=== PATIENT | male | born 1950 | race Caucasian/White ===

== ENCOUNTER 2022-12-12 16:57 | Inpatient (IN) | payer OTHER ==
[2022-12-12] MEDS ORDERED: CEFAZOLIN SODIUM 2 GM VIAL IVPB ONE (17:48)
[2022-12-12] MEDS ORDERED: CEFEPIME 2 GM/100 ML BAG IVPB ONE (18:24)
[2022-12-12 18:29] LABS: BASO % 1.2 % (0-2.0); EOS % 7.8 % (0-4.5); HEMATOCRIT 33.3 % (35.4-49); HEMOGLOBIN 11.1 GM/dL (11.7-16.9); LYMPH % 25.9 % (8-40); MCH 31.9 pg (25.7-33.7); MCHC 33.4 g/dl (32.0-35.9); MEAN CELL VOLUME 95.7 fl (80-96); MEAN PLT VOLUME 7.8 fl (7.5-11.1); NEUT % 54.1 % (42.8-82.8); PLATELET COUNT 292 10^3/uL (134-434); RBC 3.48 M/mm3 (4.00-5.60); RDW 18.5 % (11.9-15.9); WHITE BLOOD COUNT 7.7 K/mm3 (4.0-10.0)
[2022-12-12 18:36] LABS: INR 1.3 (0.83-1.09)
[2022-12-12 18:39] LABS: ACTIVATED PTT 37.6 SECONDS (25.2-36.5)
[2022-12-12 18:55] LABS: CHLORIDE 104 mmol/L (98-107); POTASSIUM 5.1 mmol/L (3.5-5.1); SODIUM 138 mmol/L (136-145)
[2022-12-12 18:57] LABS: CALCIUM 8.8 mg/dL (8.5-10.1)
[2022-12-12 18:58] LABS: ALBUMIN 3.4 g/dl (3.4-5.0); ANION GAP 5 mmol/L (4-13); BLOOD UREA NITROGEN 31.4 mg/dL (7-18); CO2 29 mmol/L (21-32); GLUCOSE,RANDOM 191 mg/dL (74-106)
[2022-12-12 19:01] LABS: CREATININE 1.1 mg/dL (0.55-1.3); SGOT/AST 37 U/L (15-37); SGPT/ALT 23 U/L (13-61)
[2022-12-12 19:02] LABS: BILIRUBIN,TOTAL 0.2 mg/dL (0.2-1)
[2022-12-12 19:03] LABS: TOT PROT 6.9 g/dl (6.4-8.2)
[2022-12-12 19:04] LABS: ALK PHOS 141 U/L (45-117)
[2022-12-12 22:31] LABS: ERYTHROCYTE SEDIMENTATION RATE 24 mm/hr (0-20)
[2022-12-13] MEDS ORDERED: PIPERACILLIN/TAZOB 3.375 GM 3.375 GM/50 ML BAG IVPB ONE ×4 (00:29→21:54)
[2022-12-13] MEDS: PIPERACILLIN/TAZOB 3.375 GM 3.375 GM in DEXTROSE 5%-WATER - 50 ML IVPB SCH ×5 (00:41→22:18)
[2022-12-13] MEDS: oxyCODONE HCL 5 MG TABLET PO PRN ×2 (00:41→22:18)
[2022-12-13] MEDS ORDERED: HALOPERIDOL LACTATE 5 MG/ML IM ONE (03:30)
[2022-12-13] MEDS: GABAPENTIN 300 MG CAPSULE PO SCH ×3 (06:16→22:18)
[2022-12-13] MEDS: LEVOTHYROXINE NA 50 MCG TABLET (FP) PO SCH (08:26)
[2022-12-13 08:57] LABS: BASO % 0.8 % (0-2.0); HEMATOCRIT 34.2 % (35.4-49); HEMOGLOBIN 11.1 GM/dL (11.7-16.9); LYMPH % 13.3 % (8-40); MCH 31.2 pg (25.7-33.7); MCHC 32.4 g/dl (32.0-35.9); MEAN CELL VOLUME 96.3 fl (80-96); MEAN PLT VOLUME 8.1 fl (7.5-11.1); MONO % 7.8 % (3.8-10.2); NEUT % 74.1 % (42.8-82.8); PLATELET COUNT 310 10^3/uL (134-434); RBC 3.55 M/mm3 (4.00-5.60); RDW 17.9 % (11.9-15.9); WHITE BLOOD COUNT 11.3 K/mm3 (4.0-10.0)
[2022-12-13 09:18] LABS: POTASSIUM 5.1 mmol/L (3.5-5.1)
[2022-12-13 09:27] LABS: ALBUMIN 3.6 g/dl (3.4-5.0); BLOOD UREA NITROGEN 22.1 mg/dL (7-18); PHOSPHOROUS 3.4 mg/dL (2.5-4.9)
[2022-12-13 09:29] LABS: BILIRUBIN,TOTAL 0.4 mg/dL (0.2-1); TOT PROT 7.4 g/dl (6.4-8.2)
[2022-12-13 09:30] LABS: CREATININE 0.9 mg/dL (0.55-1.3)
[2022-12-13] MEDS: SOTALOL HCL 80 MG TABLET (FP) PO SCH ×2 (09:37→22:27)
[2022-12-13] MEDS ORDERED: AMOXICILLIN 500 MG CAPSULE (FP) PO SCH (10:00)
[2022-12-13] MEDS: INSULIN SLIDING SCALE (NOVOLOG) 1 VIAL SQ SCH ×3 (11:22→22:18)
[2022-12-13] MEDS: INSULIN (LEVEMIR) 100 UNITS/ML UNITS SQ SCH ×2 (11:30→22:17)
[2022-12-13] MEDS ORDERED: ACETAMINOPHEN 325 MG TABLET (FP) ONE (15:57)
[2022-12-13] MEDS ORDERED: QUEtiapine FUMARATE 100 MG TABLET (FP) ONE (21:52)
[2022-12-13] MEDS ORDERED: MIRTAZAPINE 15 MG TABLET (FP) ONE (21:52)
[2022-12-13] MEDS ORDERED: QUEtiapine FUMARATE 25 MG TABLET ONE (21:52)
[2022-12-13] MEDS ORDERED: DONEPEZIL HCL 5 MG TABLET (FP) ONE (21:52)
[2022-12-13] MEDS ORDERED: ROSUVASTATIN CA 20 MG TABLET ONE (21:53)
[2022-12-13] MEDS ORDERED: traZODone HCL 50 MG TABLET (FP) ONE (21:53)
[2022-12-13] MEDS ORDERED: GABAPENTIN 300 MG CAPSULE ONE (21:53)
[2022-12-13] MEDS ORDERED: oxyCODONE HCL 5 MG TABLET ONE (21:54)
[2022-12-13] MEDS: DONEPEZIL HCL 10 MG TABLET (FP) PO SCH (22:17)
[2022-12-13] MEDS: traZODone HCL 50 MG TABLET (FP) PO SCH (22:17)
[2022-12-13] MEDS: ROSUVASTATIN CA 20 MG TABLET PO SCH (22:17)
[2022-12-13] MEDS: MIRTAZAPINE 15 MG TABLET (FP) PO SCH (22:18)
[2022-12-13] MEDS: QUEtiapine FUMARATE 50 MG TABLET PO SCH (22:18)
[2022-12-14] MEDS ORDERED: GABAPENTIN 300 MG CAPSULE ONE ×2 (06:07→13:42)
[2022-12-14] MEDS ORDERED: PIPERACILLIN/TAZOB 3.375 GM 3.375 GM/50 ML BAG IVPB ONE ×2 (06:08→13:43)
[2022-12-14] MEDS: GABAPENTIN 300 MG CAPSULE PO SCH ×3 (06:42→21:36)
[2022-12-14] MEDS: PIPERACILLIN/TAZOB 3.375 GM 3.375 GM in DEXTROSE 5%-WATER - 50 ML IVPB SCH ×3 (06:42→21:37)
[2022-12-14] MEDS: INSULIN SLIDING SCALE (NOVOLOG) 1 VIAL SQ SCH ×4 (08:29→21:40)
[2022-12-14] MEDS: INSULIN (LEVEMIR) 100 UNITS/ML UNITS SQ SCH ×2 (08:46→21:40)
[2022-12-14] MEDS ORDERED: LEVOTHYROXINE NA 50 MCG TABLET (FP) ONE (08:53)
[2022-12-14] MEDS: LEVOTHYROXINE NA 50 MCG TABLET (FP) PO SCH (09:15)
[2022-12-14] MEDS: SOTALOL HCL 80 MG TABLET (FP) PO SCH ×2 (09:15→21:35)
[2022-12-14 13:31] LABS: BASO % 0.8 % (0-2.0); EOS % 4.5 % (0-4.5); HEMATOCRIT 38.1 % (35.4-49); HEMOGLOBIN 12.6 GM/dL (11.7-16.9); LYMPH % 15.9 % (8-40); MEAN PLT VOLUME 7.9 fl (7.5-11.1); MONO % 10.3 % (3.8-10.2); NEUT % 68.5 % (42.8-82.8); PLATELET COUNT 347 10^3/uL (134-434); RBC 3.93 M/mm3 (4.00-5.60); RDW 18.1 % (11.9-15.9); WHITE BLOOD COUNT 7.7 K/mm3 (4.0-10.0)
[2022-12-14] MEDS ORDERED: oxyCODONE HCL 5 MG TABLET ONE (13:42)
[2022-12-14 13:44] LABS: POTASSIUM 4.8 mmol/L (3.5-5.1)
[2022-12-14 13:46] LABS: CALCIUM 9.5 mg/dL (8.5-10.1)
[2022-12-14 13:47] LABS: ALBUMIN 3.6 g/dl (3.4-5.0); BLOOD UREA NITROGEN 20.7 mg/dL (7-18)
[2022-12-14 13:51] LABS: TOT PROT 7.7 g/dl (6.4-8.2)
[2022-12-14 13:52] LABS: BILIRUBIN,TOTAL 0.4 mg/dL (0.2-1)
[2022-12-14] MEDS: oxyCODONE HCL 5 MG TABLET PO PRN (14:10)
[2022-12-14] MEDS ORDERED: FLU VACCINE (FLULAVAL) PF 60 MCG/0.5 ML SYRINGE 2023-2024 IM ONE (17:30)
[2022-12-14] MEDS: QUEtiapine FUMARATE 50 MG TABLET PO SCH (21:34)
[2022-12-14] MEDS: DONEPEZIL HCL 10 MG TABLET (FP) PO SCH (21:34)
[2022-12-14] MEDS: MIRTAZAPINE 15 MG TABLET (FP) PO SCH (21:34)
[2022-12-14] MEDS: traZODone HCL 50 MG TABLET (FP) PO SCH (21:35)
[2022-12-14] MEDS: ROSUVASTATIN CA 20 MG TABLET PO SCH (21:36)
[2022-12-14] MEDS: ACETAMINOPHEN 325 MG TABLET (FP) PO PRN (21:38)
[2022-12-15] MEDS: GABAPENTIN 300 MG CAPSULE PO SCH ×3 (05:43→21:52)
[2022-12-15] MEDS: PIPERACILLIN/TAZOB 3.375 GM 3.375 GM in DEXTROSE 5%-WATER - 50 ML IVPB SCH ×3 (05:43→21:56)
[2022-12-15] MEDS: oxyCODONE HCL 5 MG TABLET PO PRN ×3 (05:45→21:53)
[2022-12-15] MEDS: INSULIN (LEVEMIR) 100 UNITS/ML UNITS SQ SCH ×2 (06:07→21:51)
[2022-12-15] MEDS: LEVOTHYROXINE NA 50 MCG TABLET (FP) PO SCH (06:07)
[2022-12-15] MEDS: INSULIN SLIDING SCALE (NOVOLOG) 1 VIAL SQ SCH ×4 (06:07→21:51)
[2022-12-15 08:33] LABS: BASO % 0.8 % (0-2.0); HEMOGLOBIN 10.5 GM/dL (11.7-16.9); LYMPH % 13.8 % (8-40); MCH 31.6 pg (25.7-33.7); MCHC 32.8 g/dl (32.0-35.9); MEAN CELL VOLUME 96.5 fl (80-96); MONO % 9.1 % (3.8-10.2); NEUT % 70.3 % (42.8-82.8); PLATELET COUNT 279 10^3/uL (134-434); RBC 3.31 M/mm3 (4.00-5.60); RDW 18.4 % (11.9-15.9); WHITE BLOOD COUNT 7.4 K/mm3 (4.0-10.0)
[2022-12-15 08:45] LABS: POTASSIUM 4.1 mmol/L (3.5-5.1)
[2022-12-15 08:48] LABS: CALCIUM 8.5 mg/dL (8.5-10.1)
[2022-12-15 08:49] LABS: BLOOD UREA NITROGEN 37.6 mg/dL (7-18)
[2022-12-15 08:52] LABS: CREATININE 1.2 mg/dL (0.55-1.3)
[2022-12-15 08:53] LABS: BILIRUBIN,TOTAL 0.3 mg/dL (0.2-1); TOT PROT 6.3 g/dl (6.4-8.2)
[2022-12-15] MEDS: SOTALOL HCL 80 MG TABLET (FP) PO SCH ×2 (10:52→21:55)
[2022-12-15] MEDS: COLLAGENASE CLOSTRIDIUM HIST. 30 GRAMS TUBE TP SCH ×2 (10:52→19:34)
[2022-12-15] MEDS: traZODone HCL 50 MG TABLET (FP) PO SCH (21:51)
[2022-12-15] MEDS: DONEPEZIL HCL 10 MG TABLET (FP) PO SCH (21:52)
[2022-12-15] MEDS: MIRTAZAPINE 15 MG TABLET (FP) PO SCH (21:52)
[2022-12-15] MEDS: QUEtiapine FUMARATE 50 MG TABLET PO SCH (21:52)
[2022-12-15] MEDS: ROSUVASTATIN CA 20 MG TABLET PO SCH (21:52)
[2022-12-16] MEDS: PIPERACILLIN/TAZOB 3.375 GM 3.375 GM in DEXTROSE 5%-WATER - 50 ML IVPB SCH ×3 (06:48→22:32)
[2022-12-16] MEDS: INSULIN SLIDING SCALE (NOVOLOG) 1 VIAL SQ SCH ×4 (06:48→22:36)
[2022-12-16] MEDS: LEVOTHYROXINE NA 50 MCG TABLET (FP) PO SCH (06:48)
[2022-12-16] MEDS: GABAPENTIN 300 MG CAPSULE PO SCH ×3 (06:48→22:30)
[2022-12-16] MEDS: INSULIN (LEVEMIR) 100 UNITS/ML UNITS SQ SCH ×2 (06:49→22:37)
[2022-12-16] MEDS: COLLAGENASE CLOSTRIDIUM HIST. 30 GRAMS TUBE TP SCH (10:05)
[2022-12-16 11:14] LABS: INR 1.22 (0.83-1.09); PROTHROMBIN TIME (PATIENT) 14.1 SEC (9.7-13.0)
[2022-12-16] MEDS: oxyCODONE HCL 5 MG TABLET PO PRN (12:41)
[2022-12-16] MEDS: ACETAMINOPHEN 325 MG TABLET (FP) PO PRN (17:27)
[2022-12-16] MEDS: QUEtiapine FUMARATE 50 MG TABLET PO SCH (22:29)
[2022-12-16] MEDS: DONEPEZIL HCL 10 MG TABLET (FP) PO SCH (22:30)
[2022-12-16] MEDS: MIRTAZAPINE 15 MG TABLET (FP) PO SCH (22:30)
[2022-12-16] MEDS: ROSUVASTATIN CA 20 MG TABLET PO SCH (22:31)
[2022-12-16] MEDS: traZODone HCL 50 MG TABLET (FP) PO SCH (22:31)
[2022-12-17] MEDS ORDERED: LIDOCAINE HCL 1%, 10 MG/ML (20ML VIAL) INF ONE
[2022-12-17] MEDS: GABAPENTIN 300 MG CAPSULE PO SCH ×3 (06:49→21:01)
[2022-12-17] MEDS: PIPERACILLIN/TAZOB 3.375 GM 3.375 GM in DEXTROSE 5%-WATER - 50 ML IVPB SCH ×3 (06:49→21:01)
[2022-12-17] MEDS: LEVOTHYROXINE NA 50 MCG TABLET (FP) PO SCH (06:49)
[2022-12-17] MEDS: oxyCODONE HCL 5 MG TABLET PO PRN ×2 (06:56→23:53)
[2022-12-17] MEDS: INSULIN (LEVEMIR) 100 UNITS/ML UNITS SQ SCH ×2 (07:34→21:10)
[2022-12-17] MEDS: INSULIN SLIDING SCALE (NOVOLOG) 1 VIAL SQ SCH ×4 (07:34→21:11)
[2022-12-17 09:40] LABS: BASO % 0.8 % (0-2.0); EOS % 7.3 % (0-4.5); HEMATOCRIT 32.9 % (35.4-49); HEMOGLOBIN 11.1 GM/dL (11.7-16.9); LYMPH % 14.1 % (8-40); MCH 32.2 pg (25.7-33.7); MCHC 33.8 g/dl (32.0-35.9); MEAN CELL VOLUME 95.2 fl (80-96); MEAN PLT VOLUME 7.9 fl (7.5-11.1); MONO % 9.3 % (3.8-10.2); NEUT % 68.5 % (42.8-82.8); PLATELET COUNT 288 10^3/uL (134-434); RBC 3.45 M/mm3 (4.00-5.60); RDW 18.1 % (11.9-15.9); WHITE BLOOD COUNT 8.4 K/mm3 (4.0-10.0)
[2022-12-17 09:47] LABS: CHLORIDE 110 mmol/L (98-107); POTASSIUM 4.5 mmol/L (3.5-5.1); SODIUM 142 mmol/L (136-145)
[2022-12-17 09:52] LABS: CALCIUM 8.8 mg/dL (8.5-10.1)
[2022-12-17] MEDS ORDERED: BUPIVACAINE HCL/PF 0.5% (5MG/ML) 10 ML VIAL ONE (09:52)
[2022-12-17] MEDS ORDERED: LIDOCAINE HCL 1%, 10 MG/ML (20ML VIAL) ONE (09:52)
[2022-12-17 09:53] LABS: ANION GAP 5 mmol/L (4-13); BLOOD UREA NITROGEN 17.6 mg/dL (7-18); CO2 27 mmol/L (21-32); GLUCOSE,RANDOM 136 mg/dL (74-106)
[2022-12-17 09:56] LABS: CREATININE 0.9 mg/dL (0.55-1.3); SGOT/AST 31 U/L (15-37); SGPT/ALT 27 U/L (13-61)
[2022-12-17 09:57] LABS: BILIRUBIN,TOTAL 0.3 mg/dL (0.2-1); TOT PROT 6.6 g/dl (6.4-8.2)
[2022-12-17 09:58] LABS: ALK PHOS 121 U/L (45-117)
[2022-12-17] MEDS ORDERED: GENTAMICIN SO4 80 MG/2 ML VIAL ONE (10:05)
[2022-12-17 10:22] LABS: ERYTHROCYTE SEDIMENTATION RATE 28 mm/hr (0-20)
[2022-12-17] MEDS ORDERED: MIDAZOLAM HCL 2 MG/2 ML SINGLE DOSE VIAL ONE (10:43)
[2022-12-17] MEDS ORDERED: FENTANYL CITRATE/PF 50 MCG/ML VIAL ONE ×2 (10:43→11:17)
[2022-12-17] MEDS ORDERED: PROPOFOL 20 ML ONE (10:43)
[2022-12-17] MEDS ORDERED: ONDANSETRON 4 MG/2 ML VIAL IVPUSH PRN ×2 (10:52→12:13)
[2022-12-17] MEDS: COLLAGENASE CLOSTRIDIUM HIST. 30 GRAMS TUBE TP SCH (10:58)
[2022-12-17] MEDS ORDERED: LACTATED RINGERS SOLUTION 1,000 ML IV SCH ×2 (11:00→12:13)
[2022-12-17] MEDS ORDERED: DEXAMETHASONE SOD PHOSPHATE 4 MG/1 ML VIAL ONE (11:17)
[2022-12-17] MEDS ORDERED: ONDANSETRON 4 MG/2 ML VIAL ONE (11:17)
[2022-12-17] MEDS ORDERED: INSULIN (NOVOLOG) ASPART 100 UNITS/ML 10ML VIAL ONE (19:02)
[2022-12-17] MEDS: QUEtiapine FUMARATE 50 MG TABLET PO SCH (21:01)
[2022-12-17] MEDS: MIRTAZAPINE 15 MG TABLET (FP) PO SCH (21:02)
[2022-12-17] MEDS: SOTALOL HCL 80 MG TABLET (FP) PO SCH (21:02)
[2022-12-17] MEDS: ROSUVASTATIN CA 20 MG TABLET PO SCH (21:02)
[2022-12-17] MEDS: DONEPEZIL HCL 10 MG TABLET (FP) PO SCH (21:03)
[2022-12-17] MEDS: traZODone HCL 50 MG TABLET (FP) PO SCH (21:03)
[2022-12-18] MEDS: PIPERACILLIN/TAZOB 3.375 GM 3.375 GM in DEXTROSE 5%-WATER - 50 ML IVPB SCH ×3 (05:43→21:52)
[2022-12-18] MEDS: GABAPENTIN 300 MG CAPSULE PO SCH ×3 (05:43→21:49)
[2022-12-18] MEDS: INSULIN (LEVEMIR) 100 UNITS/ML UNITS SQ SCH ×2 (06:06→21:55)
[2022-12-18] MEDS: INSULIN SLIDING SCALE (NOVOLOG) 1 VIAL SQ SCH ×4 (06:07→21:55)
[2022-12-18] MEDS: LEVOTHYROXINE NA 50 MCG TABLET (FP) PO SCH (06:08)
[2022-12-18] MEDS: SOTALOL HCL 80 MG TABLET (FP) PO SCH ×2 (11:04→21:48)
[2022-12-18] MEDS ORDERED: INSULIN (NOVOLOG) ASPART 100 UNITS/ML 10ML VIAL ONE ×2 (11:12→16:33)
[2022-12-18] MEDS: COLLAGENASE CLOSTRIDIUM HIST. 30 GRAMS TUBE TP SCH (13:17)
[2022-12-18] MEDS: ACETAMINOPHEN 325 MG TABLET (FP) PO PRN (16:50)
[2022-12-18] MEDS: MIRTAZAPINE 15 MG TABLET (FP) PO SCH (21:48)
[2022-12-18] MEDS: traZODone HCL 50 MG TABLET (FP) PO SCH (21:48)
[2022-12-18] MEDS: APIXABAN 5 MG TABLET PO SCH (21:49)
[2022-12-18] MEDS: DONEPEZIL HCL 10 MG TABLET (FP) PO SCH (21:49)
[2022-12-18] MEDS: QUEtiapine FUMARATE 50 MG TABLET PO SCH (21:49)
[2022-12-18] MEDS: ROSUVASTATIN CA 20 MG TABLET PO SCH (21:49)
[2022-12-18] MEDS: oxyCODONE HCL 5 MG TABLET PO PRN (21:50)
[2022-12-19] MEDS: PIPERACILLIN/TAZOB 3.375 GM 3.375 GM in DEXTROSE 5%-WATER - 50 ML IVPB SCH (06:29)
[2022-12-19] MEDS: GABAPENTIN 300 MG CAPSULE PO SCH ×3 (06:29→21:34)
[2022-12-19] MEDS: INSULIN SLIDING SCALE (NOVOLOG) 1 VIAL SQ SCH ×4 (06:29→21:36)
[2022-12-19] MEDS: LEVOTHYROXINE NA 50 MCG TABLET (FP) PO SCH (06:30)
[2022-12-19] MEDS: oxyCODONE HCL 5 MG TABLET PO PRN ×2 (06:30→16:20)
[2022-12-19] MEDS: INSULIN (LEVEMIR) 100 UNITS/ML UNITS SQ SCH ×2 (06:35→21:35)
[2022-12-19] MEDS: SOTALOL HCL 80 MG TABLET (FP) PO SCH ×2 (09:43→21:35)
[2022-12-19] MEDS: APIXABAN 5 MG TABLET PO SCH ×2 (09:43→21:34)
[2022-12-19] MEDS: COLLAGENASE CLOSTRIDIUM HIST. 30 GRAMS TUBE TP SCH (13:03)
[2022-12-19] MEDS: ACETAMINOPHEN 325 MG TABLET (FP) PO PRN (13:06)
[2022-12-19] MEDS: CEFTRIAXONE 1 GM in DEXTROSE 5%-WATER - 50 ML IVPB SCH (13:33)
[2022-12-19] MEDS: AMINO ACIDS/PROTEIN HYDROLYS 30 ML LIQUID.PKT PO SCH (17:50)
[2022-12-19] MEDS: QUEtiapine FUMARATE 50 MG TABLET PO SCH (21:34)
[2022-12-19] MEDS: traZODone HCL 50 MG TABLET (FP) PO SCH (21:34)
[2022-12-19] MEDS: MIRTAZAPINE 15 MG TABLET (FP) PO SCH (21:34)
[2022-12-19] MEDS: ROSUVASTATIN CA 20 MG TABLET PO SCH (21:35)
[2022-12-19] MEDS: DONEPEZIL HCL 10 MG TABLET (FP) PO SCH (21:35)
[2022-12-20] MEDS: GABAPENTIN 300 MG CAPSULE PO SCH ×3 (07:00→22:59)
[2022-12-20] MEDS: INSULIN SLIDING SCALE (NOVOLOG) 1 VIAL SQ SCH ×4 (07:00→23:33)
[2022-12-20] MEDS: INSULIN (LEVEMIR) 100 UNITS/ML UNITS SQ SCH ×2 (07:00→22:01)
[2022-12-20] MEDS: LEVOTHYROXINE NA 50 MCG TABLET (FP) PO SCH (07:00)
[2022-12-20] MEDS: SOTALOL HCL 80 MG TABLET (FP) PO SCH ×2 (10:57→22:59)
[2022-12-20] MEDS: AMINO ACIDS/PROTEIN HYDROLYS 30 ML LIQUID.PKT PO SCH ×2 (10:57→17:59)
[2022-12-20] MEDS: APIXABAN 5 MG TABLET PO SCH ×2 (10:57→22:59)
[2022-12-20] MEDS: ZINC SULFATE 220 MG CAPSULE (FP) PO SCH (10:58)
[2022-12-20] MEDS: ASCORBIC ACID 500 MG TABLET (FP) PO SCH (10:58)
[2022-12-20] MEDS: oxyCODONE HCL 5 MG TABLET PO PRN ×2 (10:58→17:55)
[2022-12-20] MEDS: MULTIVITAMINS (DAILY MVI) TABLET (FP) PO SCH (10:58)
[2022-12-20] MEDS: CEFTRIAXONE 1 GM in DEXTROSE 5%-WATER - 50 ML IVPB SCH (11:00)
[2022-12-20] MEDS ORDERED: INSULIN (NOVOLOG) ASPART 100 UNITS/ML 10ML VIAL ONE (12:41)
[2022-12-20] MEDS: COLLAGENASE CLOSTRIDIUM HIST. 30 GRAMS TUBE TP SCH (13:55)
[2022-12-20] MEDS: DONEPEZIL HCL 10 MG TABLET (FP) PO SCH (22:59)
[2022-12-20] MEDS: QUEtiapine FUMARATE 50 MG TABLET PO SCH (22:59)
[2022-12-20] MEDS: ROSUVASTATIN CA 20 MG TABLET PO SCH (22:59)
[2022-12-20] MEDS: MIRTAZAPINE 15 MG TABLET (FP) PO SCH (23:00)
[2022-12-20] MEDS: traZODone HCL 50 MG TABLET (FP) PO SCH (23:00)
[2022-12-21] MEDS: oxyCODONE HCL 5 MG TABLET PO PRN ×2 (06:39→14:21)
[2022-12-21] MEDS: GABAPENTIN 300 MG CAPSULE PO SCH ×3 (06:51→21:57)
[2022-12-21] MEDS: LEVOTHYROXINE NA 50 MCG TABLET (FP) PO SCH (06:51)
[2022-12-21] MEDS: INSULIN (LEVEMIR) 100 UNITS/ML UNITS SQ SCH ×2 (06:51→22:00)
[2022-12-21] MEDS: INSULIN SLIDING SCALE (NOVOLOG) 1 VIAL SQ SCH ×4 (06:52→21:59)
[2022-12-21 09:20] LABS: BASO % 0.9 % (0-2.0); EOS % 5.8 % (0-4.5); HEMATOCRIT 33.5 % (35.4-49); HEMOGLOBIN 10.9 GM/dL (11.7-16.9); LYMPH % 20.3 % (8-40); MCH 31.5 pg (25.7-33.7); MCHC 32.6 g/dl (32.0-35.9); MEAN CELL VOLUME 96.5 fl (80-96); MEAN PLT VOLUME 7.6 fl (7.5-11.1); MONO % 11.2 % (3.8-10.2); NEUT % 61.8 % (42.8-82.8); PLATELET COUNT 276 10^3/uL (134-434); RBC 3.47 M/mm3 (4.00-5.60); RDW 17.8 % (11.9-15.9); WHITE BLOOD COUNT 8.4 K/mm3 (4.0-10.0)
[2022-12-21 09:44] LABS: POTASSIUM 4.4 mmol/L (3.5-5.1)
[2022-12-21 09:48] LABS: CALCIUM 9.5 mg/dL (8.5-10.1)
[2022-12-21 09:49] LABS: ALBUMIN 3.2 g/dl (3.4-5.0); BLOOD UREA NITROGEN 20.5 mg/dL (7-18)
[2022-12-21 09:53] LABS: BILIRUBIN,TOTAL 0.6 mg/dL (0.2-1); CREATININE 0.8 mg/dL (0.55-1.3)
[2022-12-21 09:55] LABS: TOT PROT 6.6 g/dl (6.4-8.2)
[2022-12-21] MEDS: APIXABAN 5 MG TABLET PO SCH ×2 (11:30→21:56)
[2022-12-21] MEDS: AMINO ACIDS/PROTEIN HYDROLYS 30 ML LIQUID.PKT PO SCH ×2 (11:30→16:51)
[2022-12-21] MEDS: MULTIVITAMINS (DAILY MVI) TABLET (FP) PO SCH (11:30)
[2022-12-21] MEDS: ASCORBIC ACID 500 MG TABLET (FP) PO SCH (11:30)
[2022-12-21] MEDS: ZINC SULFATE 220 MG CAPSULE (FP) PO SCH (11:30)
[2022-12-21] MEDS: SOTALOL HCL 80 MG TABLET (FP) PO SCH ×2 (11:30→21:56)
[2022-12-21] MEDS: CEFTRIAXONE 1 GM in DEXTROSE 5%-WATER - 50 ML IVPB SCH (11:31)
[2022-12-21] MEDS: COLLAGENASE CLOSTRIDIUM HIST. 30 GRAMS TUBE TP SCH (11:31)
[2022-12-21] MEDS ORDERED: INSULIN (NOVOLOG) ASPART 100 UNITS/ML 10ML VIAL ONE ×3 (11:32→21:06)
[2022-12-21] MEDS: DONEPEZIL HCL 10 MG TABLET (FP) PO SCH (21:56)
[2022-12-21] MEDS: QUEtiapine FUMARATE 50 MG TABLET PO SCH (21:56)
[2022-12-21] MEDS: traZODone HCL 50 MG TABLET (FP) PO SCH (21:57)
[2022-12-21] MEDS: ROSUVASTATIN CA 20 MG TABLET PO SCH (21:57)
[2022-12-21] MEDS: MIRTAZAPINE 15 MG TABLET (FP) PO SCH (21:57)
[2022-12-22] MEDS: LEVOTHYROXINE NA 50 MCG TABLET (FP) PO SCH (06:33)
[2022-12-22] MEDS: GABAPENTIN 300 MG CAPSULE PO SCH ×3 (06:33→22:09)
[2022-12-22] MEDS: oxyCODONE HCL 5 MG TABLET PO PRN ×3 (06:37→22:07)
[2022-12-22] MEDS: INSULIN SLIDING SCALE (NOVOLOG) 1 VIAL SQ SCH ×4 (06:38→22:19)
[2022-12-22] MEDS: INSULIN (LEVEMIR) 100 UNITS/ML UNITS SQ SCH ×2 (06:38→22:09)
[2022-12-22 07:45] LABS: BASO % 1.1 % (0-2.0); EOS % 6.6 % (0-4.5); HEMATOCRIT 32.8 % (35.4-49); HEMOGLOBIN 10.5 GM/dL (11.7-16.9); LYMPH % 22.6 % (8-40); MCH 31.1 pg (25.7-33.7); MCHC 31.9 g/dl (32.0-35.9); MEAN CELL VOLUME 97.6 fl (80-96); MONO % 10.9 % (3.8-10.2); NEUT % 58.8 % (42.8-82.8); PLATELET COUNT 281 10^3/uL (134-434); RBC 3.37 M/mm3 (4.00-5.60); RDW 17.7 % (11.9-15.9); WHITE BLOOD COUNT 8.3 K/mm3 (4.0-10.0)
[2022-12-22 08:02] LABS: POTASSIUM 4.4 mmol/L (3.5-5.1)
[2022-12-22 08:17] LABS: BLOOD UREA NITROGEN 25.2 mg/dL (7-18); CALCIUM 8.8 mg/dL (8.5-10.1); MAGNESIUM 2.1 mg/dL (1.8-2.4)
[2022-12-22 08:20] LABS: PHOSPHOROUS 4.6 mg/dL (2.5-4.9)
[2022-12-22 08:21] LABS: CREATININE 0.8 mg/dL (0.55-1.3)
[2022-12-22] MEDS: AMINO ACIDS/PROTEIN HYDROLYS 30 ML LIQUID.PKT PO SCH ×2 (08:46→17:05)
[2022-12-22 08:55] LABS: ANISOCYTOSIS 0; HELMET CELLS 0; HOWELL-JOLLY BODIES 0; MACROCYTOSIS 0; OVALOCYTE 0; ROULEAU 0; SICKELED CELLS 0; TARGET CELLS 0; TEAR DROP CELLS 0; TOXIC GRANULATION 0
[2022-12-22] MEDS: CEFTRIAXONE 1 GM in DEXTROSE 5%-WATER - 50 ML IVPB SCH (09:47)
[2022-12-22] MEDS: ASCORBIC ACID 500 MG TABLET (FP) PO SCH (09:47)
[2022-12-22] MEDS: COLLAGENASE CLOSTRIDIUM HIST. 30 GRAMS TUBE TP SCH (09:47)
[2022-12-22] MEDS: APIXABAN 5 MG TABLET PO SCH ×2 (09:47→22:09)
[2022-12-22] MEDS: MULTIVITAMINS (DAILY MVI) TABLET (FP) PO SCH (09:47)
[2022-12-22] MEDS: SOTALOL HCL 80 MG TABLET (FP) PO SCH ×2 (09:47→22:07)
[2022-12-22] MEDS: ZINC SULFATE 220 MG CAPSULE (FP) PO SCH (09:47)
[2022-12-22] MEDS: QUEtiapine FUMARATE 50 MG TABLET PO SCH (22:07)
[2022-12-22] MEDS: ROSUVASTATIN CA 20 MG TABLET PO SCH (22:09)
[2022-12-22] MEDS: MIRTAZAPINE 15 MG TABLET (FP) PO SCH (22:09)
[2022-12-22] MEDS: traZODone HCL 50 MG TABLET (FP) PO SCH (22:09)
[2022-12-22] MEDS: DONEPEZIL HCL 10 MG TABLET (FP) PO SCH (22:09)
[2022-12-23] MEDS: LEVOTHYROXINE NA 50 MCG TABLET (FP) PO SCH (06:46)
[2022-12-23] MEDS: GABAPENTIN 300 MG CAPSULE PO SCH ×3 (06:46→23:07)
[2022-12-23] MEDS: oxyCODONE HCL 5 MG TABLET PO PRN ×2 (06:54→13:07)
[2022-12-23] MEDS: INSULIN (LEVEMIR) 100 UNITS/ML UNITS SQ SCH ×3 (06:55→23:14)
[2022-12-23] MEDS: INSULIN SLIDING SCALE (NOVOLOG) 1 VIAL SQ SCH ×4 (07:14→23:14)
[2022-12-23] MEDS: AMINO ACIDS/PROTEIN HYDROLYS 30 ML LIQUID.PKT PO SCH ×2 (09:47→17:41)
[2022-12-23] MEDS: ASCORBIC ACID 500 MG TABLET (FP) PO SCH (10:35)
[2022-12-23] MEDS: CEFTRIAXONE 1 GM in DEXTROSE 5%-WATER - 50 ML IVPB SCH (10:35)
[2022-12-23] MEDS: MULTIVITAMINS (DAILY MVI) TABLET (FP) PO SCH (10:35)
[2022-12-23] MEDS: SOTALOL HCL 80 MG TABLET (FP) PO SCH ×2 (10:35→23:06)
[2022-12-23] MEDS: APIXABAN 5 MG TABLET PO SCH ×2 (10:35→23:07)
[2022-12-23] MEDS: ZINC SULFATE 220 MG CAPSULE (FP) PO SCH (10:35)
[2022-12-23] MEDS: ACETAMINOPHEN 325 MG TABLET (FP) PO PRN ×2 (11:44→19:07)
[2022-12-23] MEDS: COLLAGENASE CLOSTRIDIUM HIST. 30 GRAMS TUBE TP SCH (15:41)
[2022-12-23] MEDS: DONEPEZIL HCL 10 MG TABLET (FP) PO SCH (23:05)
[2022-12-23] MEDS: ROSUVASTATIN CA 20 MG TABLET PO SCH (23:06)
[2022-12-23] MEDS: traZODone HCL 50 MG TABLET (FP) PO SCH (23:06)
[2022-12-23] MEDS: MIRTAZAPINE 15 MG TABLET (FP) PO SCH (23:07)
[2022-12-23] MEDS: QUEtiapine FUMARATE 50 MG TABLET PO SCH (23:07)
[2022-12-24] MEDS: LEVOTHYROXINE NA 50 MCG TABLET (FP) PO SCH (06:36)
[2022-12-24] MEDS: GABAPENTIN 300 MG CAPSULE PO SCH ×3 (06:36→22:16)
[2022-12-24] MEDS: INSULIN SLIDING SCALE (NOVOLOG) 1 VIAL SQ SCH ×4 (06:37→22:17)
[2022-12-24] MEDS: INSULIN (LEVEMIR) 100 UNITS/ML UNITS SQ SCH ×2 (06:37→22:17)
[2022-12-24] MEDS: AMINO ACIDS/PROTEIN HYDROLYS 30 ML LIQUID.PKT PO SCH ×2 (10:33→16:52)
[2022-12-24] MEDS: ASCORBIC ACID 500 MG TABLET (FP) PO SCH (10:34)
[2022-12-24] MEDS: ZINC SULFATE 220 MG CAPSULE (FP) PO SCH (10:34)
[2022-12-24] MEDS: APIXABAN 5 MG TABLET PO SCH ×2 (10:34→22:17)
[2022-12-24] MEDS: MULTIVITAMINS (DAILY MVI) TABLET (FP) PO SCH (10:34)
[2022-12-24] MEDS: SOTALOL HCL 80 MG TABLET (FP) PO SCH ×2 (10:34→22:17)
[2022-12-24] MEDS: CEFTRIAXONE 1 GM in DEXTROSE 5%-WATER - 50 ML IVPB SCH (10:34)
[2022-12-24] MEDS ORDERED: INSULIN (NOVOLOG) ASPART 100 UNITS/ML 10ML VIAL ONE ×2 (10:37→19:31)
[2022-12-24] MEDS: oxyCODONE HCL 5 MG TABLET PO PRN (10:37)
[2022-12-24] MEDS: ACETAMINOPHEN 325 MG TABLET (FP) PO PRN (17:48)
[2022-12-24] MEDS: COLLAGENASE CLOSTRIDIUM HIST. 30 GRAMS TUBE TP SCH (17:49)
[2022-12-24] MEDS: traZODone HCL 50 MG TABLET (FP) PO SCH (22:16)
[2022-12-24] MEDS: MIRTAZAPINE 15 MG TABLET (FP) PO SCH (22:16)
[2022-12-24] MEDS: QUEtiapine FUMARATE 50 MG TABLET PO SCH (22:16)
[2022-12-24] MEDS: DONEPEZIL HCL 10 MG TABLET (FP) PO SCH (22:17)
[2022-12-24] MEDS: ROSUVASTATIN CA 20 MG TABLET PO SCH (22:17)
[2022-12-25] MEDS: GABAPENTIN 300 MG CAPSULE PO SCH ×3 (05:56→22:29)
[2022-12-25] MEDS: INSULIN (LEVEMIR) 100 UNITS/ML UNITS SQ SCH ×2 (06:03→22:30)
[2022-12-25] MEDS: LEVOTHYROXINE NA 50 MCG TABLET (FP) PO SCH (06:04)
[2022-12-25] MEDS: INSULIN SLIDING SCALE (NOVOLOG) 1 VIAL SQ SCH ×4 (06:04→22:30)
[2022-12-25] MEDS: CEFTRIAXONE 1 GM in DEXTROSE 5%-WATER - 50 ML IVPB SCH (09:34)
[2022-12-25] MEDS: AMINO ACIDS/PROTEIN HYDROLYS 30 ML LIQUID.PKT PO SCH ×2 (09:35→16:34)
[2022-12-25] MEDS: ZINC SULFATE 220 MG CAPSULE (FP) PO SCH (09:36)
[2022-12-25] MEDS: SOTALOL HCL 80 MG TABLET (FP) PO SCH ×2 (09:37→22:29)
[2022-12-25] MEDS: APIXABAN 5 MG TABLET PO SCH ×2 (09:38→22:29)
[2022-12-25] MEDS: MULTIVITAMINS (DAILY MVI) TABLET (FP) PO SCH (09:38)
[2022-12-25] MEDS: ASCORBIC ACID 500 MG TABLET (FP) PO SCH (09:39)
[2022-12-25] MEDS: COLLAGENASE CLOSTRIDIUM HIST. 30 GRAMS TUBE TP SCH (09:39)
[2022-12-25] MEDS ORDERED: INSULIN (NOVOLOG) ASPART 100 UNITS/ML 10ML VIAL ONE (10:40)
[2022-12-25] MEDS: oxyCODONE HCL 5 MG TABLET PO PRN ×2 (11:31→17:00)
[2022-12-25] MEDS: ROSUVASTATIN CA 20 MG TABLET PO SCH (22:29)
[2022-12-25] MEDS: DONEPEZIL HCL 10 MG TABLET (FP) PO SCH (22:29)
[2022-12-25] MEDS: MIRTAZAPINE 15 MG TABLET (FP) PO SCH (22:29)
[2022-12-25] MEDS: traZODone HCL 50 MG TABLET (FP) PO SCH (22:29)
[2022-12-25] MEDS: QUEtiapine FUMARATE 50 MG TABLET PO SCH (22:30)
[2022-12-26] MEDS: GABAPENTIN 300 MG CAPSULE PO SCH ×3 (06:05→22:11)
[2022-12-26] MEDS: INSULIN SLIDING SCALE (NOVOLOG) 1 VIAL SQ SCH ×4 (06:05→22:21)
[2022-12-26] MEDS: LEVOTHYROXINE NA 50 MCG TABLET (FP) PO SCH (06:05)
[2022-12-26] MEDS: INSULIN (LEVEMIR) 100 UNITS/ML UNITS SQ SCH ×2 (06:07→22:22)
[2022-12-26 09:29] LABS: BASO % 0.9 % (0-2.0); EOS % 5.2 % (0-4.5); HEMATOCRIT 34.8 % (35.4-49); HEMOGLOBIN 11.3 GM/dL (11.7-16.9); LYMPH % 19.6 % (8-40); MCH 31.7 pg (25.7-33.7); MCHC 32.5 g/dl (32.0-35.9); MEAN CELL VOLUME 97.7 fl (80-96); MONO % 9.2 % (3.8-10.2); NEUT % 65.1 % (42.8-82.8); PLATELET COUNT 255 10^3/uL (134-434); RBC 3.56 M/mm3 (4.00-5.60); RDW 17.5 % (11.9-15.9); WHITE BLOOD COUNT 6.9 K/mm3 (4.0-10.0)
[2022-12-26 10:20] LABS: POTASSIUM 4.3 mmol/L (3.5-5.1)
[2022-12-26 10:29] LABS: ALBUMIN 3.3 g/dl (3.4-5.0); CALCIUM 8.8 mg/dL (8.5-10.1)
[2022-12-26 10:35] LABS: BILIRUBIN,TOTAL 0.4 mg/dL (0.2-1); TOT PROT 6.8 g/dl (6.4-8.2)
[2022-12-26] MEDS: APIXABAN 5 MG TABLET PO SCH ×2 (10:36→22:12)
[2022-12-26] MEDS: ASCORBIC ACID 500 MG TABLET (FP) PO SCH (10:36)
[2022-12-26] MEDS: CEFTRIAXONE 1 GM in DEXTROSE 5%-WATER - 50 ML IVPB SCH (10:36)
[2022-12-26] MEDS: ZINC SULFATE 220 MG CAPSULE (FP) PO SCH (10:36)
[2022-12-26] MEDS: MULTIVITAMINS (DAILY MVI) TABLET (FP) PO SCH (10:36)
[2022-12-26] MEDS: SOTALOL HCL 80 MG TABLET (FP) PO SCH ×2 (10:36→22:12)
[2022-12-26] MEDS: oxyCODONE HCL 5 MG TABLET PO PRN ×2 (10:36→18:09)
[2022-12-26] MEDS: AMINO ACIDS/PROTEIN HYDROLYS 30 ML LIQUID.PKT PO SCH ×2 (10:36→16:52)
[2022-12-26] MEDS: ACETAMINOPHEN 325 MG TABLET (FP) PO PRN (12:32)
[2022-12-26] MEDS: COLLAGENASE CLOSTRIDIUM HIST. 30 GRAMS TUBE TP SCH (12:34)
[2022-12-26] MEDS: QUEtiapine FUMARATE 50 MG TABLET PO SCH (22:11)
[2022-12-26] MEDS: ROSUVASTATIN CA 20 MG TABLET PO SCH (22:11)
[2022-12-26] MEDS: MIRTAZAPINE 15 MG TABLET (FP) PO SCH (22:12)
[2022-12-26] MEDS: DONEPEZIL HCL 10 MG TABLET (FP) PO SCH (22:12)
[2022-12-26] MEDS: traZODone HCL 50 MG TABLET (FP) PO SCH (22:12)
[2022-12-27] MEDS: GABAPENTIN 300 MG CAPSULE PO SCH ×3 (05:35→21:19)
[2022-12-27] MEDS: INSULIN (LEVEMIR) 100 UNITS/ML UNITS SQ SCH ×2 (07:45→21:20)
[2022-12-27] MEDS: INSULIN SLIDING SCALE (NOVOLOG) 1 VIAL SQ SCH ×4 (07:46→21:19)
[2022-12-27] MEDS: LEVOTHYROXINE NA 50 MCG TABLET (FP) PO SCH (07:46)
[2022-12-27] MEDS: SOTALOL HCL 80 MG TABLET (FP) PO SCH ×3 (09:13→21:18)
[2022-12-27] MEDS: CEFTRIAXONE 1 GM in DEXTROSE 5%-WATER - 50 ML IVPB SCH ×2 (09:13→11:38)
[2022-12-27] MEDS: APIXABAN 5 MG TABLET PO SCH ×3 (09:13→21:18)
[2022-12-27] MEDS: ASCORBIC ACID 500 MG TABLET (FP) PO SCH ×2 (09:13→11:47)
[2022-12-27] MEDS: MULTIVITAMINS (DAILY MVI) TABLET (FP) PO SCH ×2 (09:13→11:47)
[2022-12-27] MEDS: ZINC SULFATE 220 MG CAPSULE (FP) PO SCH ×2 (09:13→11:39)
[2022-12-27] MEDS: AMINO ACIDS/PROTEIN HYDROLYS 30 ML LIQUID.PKT PO SCH ×3 (09:14→17:15)
[2022-12-27] MEDS ORDERED: INSULIN (NOVOLOG) ASPART 100 UNITS/ML 10ML VIAL ONE ×2 (11:18→18:04)
[2022-12-27] MEDS: COLLAGENASE CLOSTRIDIUM HIST. 30 GRAMS TUBE TP SCH (13:04)
[2022-12-27 14:32] VITALS: BMI 18.3
[2022-12-27 14:35] VITALS: RESP 18
[2022-12-27] MEDS: ACETAMINOPHEN 325 MG TABLET (FP) PO PRN (20:28)
[2022-12-27] MEDS: oxyCODONE HCL 5 MG TABLET PO PRN (20:28)
[2022-12-27] MEDS: DONEPEZIL HCL 10 MG TABLET (FP) PO SCH (21:17)
[2022-12-27] MEDS: ROSUVASTATIN CA 20 MG TABLET PO SCH (21:18)
[2022-12-27] MEDS: traZODone HCL 50 MG TABLET (FP) PO SCH (21:18)
[2022-12-27] MEDS: QUEtiapine FUMARATE 50 MG TABLET PO SCH (21:18)
[2022-12-27] MEDS: MIRTAZAPINE 15 MG TABLET (FP) PO SCH (21:18)
[2022-12-28] MEDS: oxyCODONE HCL 5 MG TABLET PO PRN ×2 (02:08→10:35)
[2022-12-28] MEDS: ACETAMINOPHEN 325 MG TABLET (FP) PO PRN ×3 (02:09→21:45)
[2022-12-28] MEDS: GABAPENTIN 300 MG CAPSULE PO SCH ×3 (06:12→21:45)
[2022-12-28] MEDS: LEVOTHYROXINE NA 50 MCG TABLET (FP) PO SCH (06:12)
[2022-12-28] MEDS: INSULIN (LEVEMIR) 100 UNITS/ML UNITS SQ SCH ×2 (06:12→21:47)
[2022-12-28] MEDS: INSULIN SLIDING SCALE (NOVOLOG) 1 VIAL SQ SCH ×4 (06:13→21:47)
[2022-12-28] MEDS: AMINO ACIDS/PROTEIN HYDROLYS 30 ML LIQUID.PKT PO SCH ×2 (08:52→16:45)
[2022-12-28] MEDS: MULTIVITAMINS (DAILY MVI) TABLET (FP) PO SCH (10:33)
[2022-12-28] MEDS: CEFTRIAXONE 1 GM in DEXTROSE 5%-WATER - 50 ML IVPB SCH (10:33)
[2022-12-28] MEDS: ASCORBIC ACID 500 MG TABLET (FP) PO SCH (10:34)
[2022-12-28] MEDS: ZINC SULFATE 220 MG CAPSULE (FP) PO SCH (10:34)
[2022-12-28] MEDS: APIXABAN 5 MG TABLET PO SCH ×2 (10:34→21:45)
[2022-12-28] MEDS: COLLAGENASE CLOSTRIDIUM HIST. 30 GRAMS TUBE TP SCH (10:34)
[2022-12-28] MEDS: SOTALOL HCL 80 MG TABLET (FP) PO SCH ×2 (10:34→21:45)
[2022-12-28] MEDS ORDERED: INSULIN (NOVOLOG) ASPART 100 UNITS/ML 10ML VIAL ONE (21:15)
[2022-12-28] MEDS: ROSUVASTATIN CA 20 MG TABLET PO SCH (21:45)
[2022-12-28] MEDS: DONEPEZIL HCL 10 MG TABLET (FP) PO SCH (21:45)
[2022-12-28] MEDS: QUEtiapine FUMARATE 50 MG TABLET PO SCH (21:45)
[2022-12-28] MEDS: MIRTAZAPINE 15 MG TABLET (FP) PO SCH (21:45)
[2022-12-28] MEDS: traZODone HCL 50 MG TABLET (FP) PO SCH (21:45)
[2022-12-29] MEDS: LEVOTHYROXINE NA 50 MCG TABLET (FP) PO SCH (06:05)
[2022-12-29] MEDS: GABAPENTIN 300 MG CAPSULE PO SCH (06:05)
[2022-12-29] MEDS: INSULIN SLIDING SCALE (NOVOLOG) 1 VIAL SQ SCH (06:05)
[2022-12-29] MEDS: ACETAMINOPHEN 325 MG TABLET (FP) PO PRN ×2 (06:10→11:50)
[2022-12-29 07:34] VITALS: TEMP 98.4
[2022-12-29] MEDS: INSULIN (LEVEMIR) 100 UNITS/ML UNITS SQ SCH (07:46)
[2022-12-29] MEDS: ZINC SULFATE 220 MG CAPSULE (FP) PO SCH (09:07)
[2022-12-29] MEDS: CEFTRIAXONE 1 GM in DEXTROSE 5%-WATER - 50 ML IVPB SCH (09:07)
[2022-12-29] MEDS: MULTIVITAMINS (DAILY MVI) TABLET (FP) PO SCH (09:07)
[2022-12-29] MEDS: AMINO ACIDS/PROTEIN HYDROLYS 30 ML LIQUID.PKT PO SCH (09:07)
[2022-12-29] MEDS: SOTALOL HCL 80 MG TABLET (FP) PO SCH (09:07)
[2022-12-29] MEDS: APIXABAN 5 MG TABLET PO SCH (09:07)
[2022-12-29] MEDS: ASCORBIC ACID 500 MG TABLET (FP) PO SCH (09:07)
[2022-12-29 12:01] VITALS: BP 144/53; PULSE 53
== END 2022-12-29 12:00 | DRG 623 ==
LOC: JER 16:57 → JERBED 19:45 → J7W 12-14 14:27
PROVIDERS: ADMIT Internal Medicine; ATTEND Student in an Organized Health Care Education/Training Program
PROC: 0JBQ0ZZ Excision of Right Foot Subcutaneous Tissue and Fascia, Open Approach (ICD-10-PCS; principal; 2022-12-17 11:00)
DX: E11.69 Type 2 diabetes mellitus with other specified complication (principal); E11.52 Type 2 diabetes mellitus with diabetic peripheral angiopathy with gangrene; M86.8X7 Other osteomyelitis, ankle and foot; I48.92 Unspecified atrial flutter; L97.418 Non-pressure chronic ulcer of right heel and midfoot with other specified severity; I96 Gangrene, not elsewhere classified; E44.0 Moderate protein-calorie malnutrition; Z68.1 Body mass index [BMI] 19.9 or less, adult; E11.621 Type 2 diabetes mellitus with foot ulcer; I48.91 Unspecified atrial fibrillation; E88.810 Metabolic syndrome; E78.5 Hyperlipidemia, unspecified; E11.51 Type 2 diabetes mellitus with diabetic peripheral angiopathy without gangrene; E03.9 Hypothyroidism, unspecified; B96.20 Unspecified Escherichia coli [E. coli] as the cause of diseases classified elsewhere; B95.7 Other staphylococcus as the cause of diseases classified elsewhere; I12.9 Hypertensive chronic kidney disease with stage 1 through stage 4 chronic kidney disease, or unspecified chronic kidney disease; E11.22 Type 2 diabetes mellitus with diabetic chronic kidney disease; N18.9 Chronic kidney disease, unspecified; E11.42 Type 2 diabetes mellitus with diabetic polyneuropathy; L08.9 Local infection of the skin and subcutaneous tissue, unspecified; E11.65 Type 2 diabetes mellitus with hyperglycemia; I25.10 Atherosclerotic heart disease of native coronary artery without angina pectoris; F03.90 Unspecified dementia, unspecified severity, without behavioral disturbance, psychotic disturbance, mood disturbance, and anxiety; K57.90 Diverticulosis of intestine, part unspecified, without perforation or abscess without bleeding; K64.8 Other hemorrhoids; F32.9 Major depressive disorder, single episode, unspecified; Z95.1 Presence of aortocoronary bypass graft; Z95.2 Presence of prosthetic heart valve
CPT/HCPCS: 36415; 71045-TC-FY; 73630-TC-RT-FY; 73718-TC-RT; 80048; 80053; 82962; 83735; 84100; 85025; 85610; 85651; 85730; 86140; 86850; 86900; 86901; 87040; 87070; 87186; 87205; 88304-TC; 90686; 93005; 93010; 93926-TC; 94760; 97116-GP; 97161-GP; 99285-25; G0008

== ENCOUNTER 2022-12-29 14:38 | Observation (INO) | payer OTHER ==
[2022-12-29] MEDS ORDERED: SENNOSIDES 8.6MG TABLET (FP) PO PRN ×2 (17:47→17:50)
[2022-12-29] MEDS ORDERED: oxyCODONE HCL 5 MG TABLET ONE (17:56)
[2022-12-29] MEDS: oxyCODONE HCL 5 MG TABLET PO PRN (18:00)
[2022-12-29 18:27] LABS: EOS % 2.1 % (0-4.5); HEMATOCRIT 33.3 % (35.4-49); HEMOGLOBIN 10.7 GM/dL (11.7-16.9); LYMPH % 17.1 % (8-40); MCH 31.3 pg (25.7-33.7); MCHC 32.1 g/dl (32.0-35.9); MEAN CELL VOLUME 97.7 fl (80-96); MEAN PLT VOLUME 8.2 fl (7.5-11.1); MONO % 8.5 % (3.8-10.2); NEUT % 71.3 % (42.8-82.8); PLATELET COUNT 256 10^3/uL (134-434); RBC 3.41 M/mm3 (4.00-5.60); RDW 17.1 % (11.9-15.9); WHITE BLOOD COUNT 7.9 K/mm3 (4.0-10.0)
[2022-12-29 18:34] LABS: INR 1.36 (0.83-1.09); PROTHROMBIN TIME (PATIENT) 15.7 SEC (9.7-13.0)
[2022-12-29 18:37] LABS: ACTIVATED PTT 36.1 SECONDS (25.2-36.5)
[2022-12-29 18:43] LABS: POTASSIUM 4.6 mmol/L (3.5-5.1)
[2022-12-29 18:44] LABS: CALCIUM 8.8 mg/dL (8.5-10.1)
[2022-12-29 18:45] LABS: ALBUMIN 3.3 g/dl (3.4-5.0); BLOOD UREA NITROGEN 28.4 mg/dL (7-18)
[2022-12-29 18:50] LABS: BILIRUBIN,TOTAL 0.2 mg/dL (0.2-1); TOT PROT 6.7 g/dl (6.4-8.2)
[2022-12-29] MEDS ORDERED: SOTALOL HCL 80 MG TABLET (FP) PO SCH (22:00)
[2022-12-29] MEDS ORDERED: HEPARIN NA (PORCINE) 5,000 UNITS/ML 1ML VIAL SQ SCH (22:00)
[2022-12-29] MEDS: traZODone HCL 50 MG TABLET (FP) PO SCH (23:06)
[2022-12-29] MEDS: APIXABAN 5 MG TABLET PO SCH (23:06)
[2022-12-29] MEDS: CEFUROXIME AXETIL 500 MG TABLET PO SCH (23:07)
[2022-12-29] MEDS: ROSUVASTATIN CA 20 MG TABLET PO SCH (23:07)
[2022-12-30] MEDS: oxyCODONE HCL 5 MG TABLET PO PRN ×2 (01:57→14:38)
[2022-12-30] MEDS: LEVOTHYROXINE NA 50 MCG TABLET (FP) PO SCH (07:03)
[2022-12-30 08:18] LABS: BASO % 0.8 % (0-2.0); EOS % 3.3 % (0-4.5); HEMATOCRIT 35.3 % (35.4-49); HEMOGLOBIN 11.3 GM/dL (11.7-16.9); LYMPH % 18.1 % (8-40); MCH 31.2 pg (25.7-33.7); MCHC 32.1 g/dl (32.0-35.9); MEAN CELL VOLUME 97.2 fl (80-96); MEAN PLT VOLUME 8.4 fl (7.5-11.1); MONO % 11.3 % (3.8-10.2); NEUT % 66.5 % (42.8-82.8); PLATELET COUNT 247 10^3/uL (134-434); RBC 3.63 M/mm3 (4.00-5.60); RDW 17.3 % (11.9-15.9); WHITE BLOOD COUNT 8.7 K/mm3 (4.0-10.0)
[2022-12-30] MEDS ORDERED: QUEtiapine FUMARATE 100 MG TABLET (FP) PO SCH (10:00)
[2022-12-30] MEDS: APIXABAN 5 MG TABLET PO SCH ×2 (11:11→21:42)
[2022-12-30] MEDS: LACTOBACILLUS ACIDOPHILUS 1 TABLET PO SCH (11:11)
[2022-12-30] MEDS: QUETIAPINE FUMARATE 100 MG, QUETIAPINE FUMARATE 50 MG PO SCH (11:11)
[2022-12-30] MEDS: CEFUROXIME AXETIL 500 MG TABLET PO SCH ×2 (11:12→21:42)
[2022-12-30 12:10] VITALS: BMI 19.0
[2022-12-30] MEDS: AMINO ACIDS/PROTEIN HYDROLYS 30 ML LIQUID.PKT PO SCH (17:23)
[2022-12-30] MEDS: traZODone HCL 50 MG TABLET (FP) PO SCH (21:41)
[2022-12-30] MEDS: DONEPEZIL HCL 10 MG TABLET (FP) PO SCH (21:41)
[2022-12-30] MEDS: ROSUVASTATIN CA 20 MG TABLET PO SCH (21:42)
[2022-12-31] MEDS: LEVOTHYROXINE NA 50 MCG TABLET (FP) PO SCH (06:46)
[2022-12-31] MEDS: APIXABAN 5 MG TABLET PO SCH ×2 (09:47→21:36)
[2022-12-31] MEDS: QUETIAPINE FUMARATE 100 MG, QUETIAPINE FUMARATE 50 MG PO SCH (09:47)
[2022-12-31] MEDS: AMOXICILLIN 500 MG CAPSULE (FP) PO SCH (09:47)
[2022-12-31] MEDS: AMINO ACIDS/PROTEIN HYDROLYS 30 ML LIQUID.PKT PO SCH ×3 (09:47→18:27)
[2022-12-31] MEDS: CEFUROXIME AXETIL 500 MG TABLET PO SCH (09:47)
[2022-12-31] MEDS: oxyCODONE HCL 5 MG TABLET PO PRN ×2 (10:12→19:45)
[2022-12-31] MEDS: LACTOBACILLUS ACIDOPHILUS 1 TABLET PO SCH (10:14)
[2022-12-31] MEDS: DONEPEZIL HCL 10 MG TABLET (FP) PO SCH (21:36)
[2022-12-31] MEDS: traZODone HCL 50 MG TABLET (FP) PO SCH (21:36)
[2022-12-31] MEDS: ROSUVASTATIN CA 20 MG TABLET PO SCH (21:36)
[2023-01-01] MEDS: LEVOTHYROXINE NA 50 MCG TABLET (FP) PO SCH (06:17)
[2023-01-01] MEDS: AMOXICILLIN 500 MG CAPSULE (FP) PO SCH (10:10)
[2023-01-01] MEDS: APIXABAN 5 MG TABLET PO SCH (10:11)
[2023-01-01] MEDS: oxyCODONE HCL 5 MG TABLET PO PRN (10:11)
[2023-01-01] MEDS: QUETIAPINE FUMARATE 100 MG, QUETIAPINE FUMARATE 50 MG PO SCH (10:11)
[2023-01-01] MEDS: AMINO ACIDS/PROTEIN HYDROLYS 30 ML LIQUID.PKT PO SCH ×2 (10:13→18:25)
[2023-01-01] MEDS: LACTOBACILLUS ACIDOPHILUS 1 TABLET PO SCH (10:13)
[2023-01-01] MEDS: INSULIN SLIDING SCALE (NOVOLOG) 1 VIAL SQ SCH (16:54)
[2023-01-02] MEDS: APIXABAN 5 MG TABLET PO SCH ×3 (04:02→21:23)
[2023-01-02] MEDS: traZODone HCL 50 MG TABLET (FP) PO SCH ×2 (04:02→21:23)
[2023-01-02] MEDS: DONEPEZIL HCL 10 MG TABLET (FP) PO SCH ×2 (04:02→21:23)
[2023-01-02] MEDS: ROSUVASTATIN CA 20 MG TABLET PO SCH ×2 (04:02→21:23)
[2023-01-02] MEDS: INSULIN SLIDING SCALE (NOVOLOG) 1 VIAL SQ SCH ×5 (04:03→21:23)
[2023-01-02] MEDS: LEVOTHYROXINE NA 50 MCG TABLET (FP) PO SCH (08:11)
[2023-01-02] MEDS: QUETIAPINE FUMARATE 100 MG, QUETIAPINE FUMARATE 50 MG PO SCH (12:07)
[2023-01-02] MEDS: AMOXICILLIN 500 MG CAPSULE (FP) PO SCH (12:08)
[2023-01-02] MEDS: AMINO ACIDS/PROTEIN HYDROLYS 30 ML LIQUID.PKT PO SCH ×3 (12:08→18:44)
[2023-01-02] MEDS: LACTOBACILLUS ACIDOPHILUS 1 TABLET PO SCH (12:08)
[2023-01-02] MEDS: LORazepam 1 MG TABLET PO PRN ×2 (14:15→21:21)
[2023-01-03] MEDS ORDERED: INSULIN (NOVOLOG) ASPART 100 UNITS/ML 10ML VIAL ONE (05:32)
[2023-01-03] MEDS: oxyCODONE HCL 5 MG TABLET PO PRN ×2 (06:15→14:16)
[2023-01-03] MEDS: LEVOTHYROXINE NA 50 MCG TABLET (FP) PO SCH (06:16)
[2023-01-03] MEDS: LORazepam 1 MG TABLET PO PRN (06:16)
[2023-01-03] MEDS: INSULIN SLIDING SCALE (NOVOLOG) 1 VIAL SQ SCH ×4 (06:17→22:53)
[2023-01-03] MEDS: AMINO ACIDS/PROTEIN HYDROLYS 30 ML LIQUID.PKT PO SCH ×2 (09:13→16:38)
[2023-01-03] MEDS ORDERED: LORazepam 1 MG TABLET PO PRN (09:13)
[2023-01-03 09:31] LABS: BASO % 0.7 % (0-2.0); EOS % 1.1 % (0-4.5); HEMATOCRIT 37.2 % (35.4-49); HEMOGLOBIN 12.7 GM/dL (11.7-16.9); LYMPH % 21.7 % (8-40); MCH 32.2 pg (25.7-33.7); MCHC 34.1 g/dl (32.0-35.9); MEAN CELL VOLUME 94.7 fl (80-96); NEUT % 66.5 % (42.8-82.8); PLATELET COUNT 275 10^3/uL (134-434); RBC 3.93 M/mm3 (4.00-5.60); RDW 16.8 % (11.9-15.9); WHITE BLOOD COUNT 6.6 K/mm3 (4.0-10.0)
[2023-01-03 09:41] LABS: POTASSIUM 4.1 mmol/L (3.5-5.1)
[2023-01-03 09:50] LABS: ALBUMIN 3.7 g/dl (3.4-5.0); CALCIUM 9.5 mg/dL (8.5-10.1)
[2023-01-03 09:51] LABS: BLOOD UREA NITROGEN 25.6 mg/dL (7-18)
[2023-01-03 09:53] LABS: CREATININE 0.9 mg/dL (0.55-1.3)
[2023-01-03 09:55] LABS: BILIRUBIN,TOTAL 0.6 mg/dL (0.2-1); TOT PROT 7.1 g/dl (6.4-8.2)
[2023-01-03] MEDS: QUETIAPINE FUMARATE 100 MG, QUETIAPINE FUMARATE 50 MG PO SCH (10:06)
[2023-01-03] MEDS: APIXABAN 5 MG TABLET PO SCH ×2 (10:07→22:53)
[2023-01-03] MEDS: LACTOBACILLUS ACIDOPHILUS 1 TABLET PO SCH (10:07)
[2023-01-03] MEDS: AMOXICILLIN 500 MG CAPSULE (FP) PO SCH (10:09)
[2023-01-03] MEDS: AMOX TR/POT CLAV 875MG/125MG TABLETS (FP) PO SCH (17:17)
[2023-01-03] MEDS: ROSUVASTATIN CA 20 MG TABLET PO SCH (22:53)
[2023-01-03] MEDS: traZODone HCL 50 MG TABLET (FP) PO SCH (22:53)
[2023-01-03] MEDS: DONEPEZIL HCL 10 MG TABLET (FP) PO SCH (22:53)
[2023-01-04] MEDS: LEVOTHYROXINE NA 50 MCG TABLET (FP) PO SCH (07:40)
[2023-01-04] MEDS: INSULIN SLIDING SCALE (NOVOLOG) 1 VIAL SQ SCH ×4 (07:40→21:17)
[2023-01-04] MEDS: QUETIAPINE FUMARATE 100 MG, QUETIAPINE FUMARATE 50 MG PO SCH (09:22)
[2023-01-04] MEDS: AMOX TR/POT CLAV 875MG/125MG TABLETS (FP) PO SCH ×2 (09:23→17:37)
[2023-01-04] MEDS: oxyCODONE HCL 5 MG TABLET PO PRN ×2 (09:23→21:16)
[2023-01-04] MEDS: APIXABAN 5 MG TABLET PO SCH ×2 (09:23→21:16)
[2023-01-04] MEDS: AMINO ACIDS/PROTEIN HYDROLYS 30 ML LIQUID.PKT PO SCH ×2 (09:40→17:37)
[2023-01-04] MEDS: LACTOBACILLUS ACIDOPHILUS 1 TABLET PO SCH (09:40)
[2023-01-04] MEDS: COLLAGENASE CLOSTRIDIUM HIST. 30 GRAMS TUBE TP SCH (15:18)
[2023-01-04] MEDS: ROSUVASTATIN CA 20 MG TABLET PO SCH (21:16)
[2023-01-04] MEDS: traZODone HCL 50 MG TABLET (FP) PO SCH (21:16)
[2023-01-04] MEDS: DONEPEZIL HCL 10 MG TABLET (FP) PO SCH (21:17)
[2023-01-05] MEDS: LEVOTHYROXINE NA 50 MCG TABLET (FP) PO SCH (06:06)
[2023-01-05] MEDS: INSULIN SLIDING SCALE (NOVOLOG) 1 VIAL SQ SCH ×4 (06:06→22:04)
[2023-01-05] MEDS: AMINO ACIDS/PROTEIN HYDROLYS 30 ML LIQUID.PKT PO SCH ×2 (09:21→17:45)
[2023-01-05] MEDS: QUETIAPINE FUMARATE 100 MG, QUETIAPINE FUMARATE 50 MG PO SCH (09:26)
[2023-01-05] MEDS: APIXABAN 5 MG TABLET PO SCH ×2 (09:26→21:52)
[2023-01-05] MEDS: AMOX TR/POT CLAV 875MG/125MG TABLETS (FP) PO SCH ×2 (09:26→17:50)
[2023-01-05] MEDS: LACTOBACILLUS ACIDOPHILUS 1 TABLET PO SCH (09:26)
[2023-01-05] MEDS: COLLAGENASE CLOSTRIDIUM HIST. 30 GRAMS TUBE TP SCH (09:27)
[2023-01-05] MEDS: TOBRAMYCIN 0.3% OPHTH SOLN 5 ML BOTTLE OU SCH ×2 (12:04→18:13)
[2023-01-05] MEDS: oxyCODONE HCL 5 MG TABLET PO PRN (12:06)
[2023-01-05] MEDS: LORazepam 2 MG/ML SDV VIAL IM PRN (17:51)
[2023-01-05] MEDS: traZODone HCL 50 MG TABLET (FP) PO SCH (21:52)
[2023-01-05] MEDS: DONEPEZIL HCL 10 MG TABLET (FP) PO SCH (21:52)
[2023-01-05] MEDS: ROSUVASTATIN CA 20 MG TABLET PO SCH (21:52)
[2023-01-06] MEDS: TOBRAMYCIN 0.3% OPHTH SOLN 5 ML BOTTLE OU SCH ×5 (00:37→23:32)
[2023-01-06] MEDS: LEVOTHYROXINE NA 50 MCG TABLET (FP) PO SCH (06:28)
[2023-01-06] MEDS: INSULIN SLIDING SCALE (NOVOLOG) 1 VIAL SQ SCH ×4 (06:31→23:11)
[2023-01-06] MEDS: AMINO ACIDS/PROTEIN HYDROLYS 30 ML LIQUID.PKT PO SCH ×2 (08:44→17:08)
[2023-01-06] MEDS: AMOX TR/POT CLAV 875MG/125MG TABLETS (FP) PO SCH ×2 (08:44→17:10)
[2023-01-06] MEDS: oxyCODONE HCL 5 MG TABLET PO PRN ×2 (09:20→16:01)
[2023-01-06] MEDS: QUETIAPINE FUMARATE 100 MG, QUETIAPINE FUMARATE 50 MG PO SCH (09:20)
[2023-01-06] MEDS: APIXABAN 5 MG TABLET PO SCH ×2 (09:21→23:03)
[2023-01-06] MEDS: LACTOBACILLUS ACIDOPHILUS 1 TABLET PO SCH (09:21)
[2023-01-06] MEDS: COLLAGENASE CLOSTRIDIUM HIST. 30 GRAMS TUBE TP SCH (09:21)
[2023-01-06 09:50] LABS: EOS % 2.1 % (0-4.5); HEMATOCRIT 40.6 % (35.4-49); HEMOGLOBIN 12.9 GM/dL (11.7-16.9); LYMPH % 19.1 % (8-40); MCHC 31.7 g/dl (32.0-35.9); MEAN CELL VOLUME 97.8 fl (80-96); MEAN PLT VOLUME 8.1 fl (7.5-11.1); MONO % 7.7 % (3.8-10.2); NEUT % 70.1 % (42.8-82.8); PLATELET COUNT 266 10^3/uL (134-434); RBC 4.15 M/mm3 (4.00-5.60); RDW 16.4 % (11.9-15.9); WHITE BLOOD COUNT 7.1 K/mm3 (4.0-10.0)
[2023-01-06 10:09] LABS: POTASSIUM 4.3 mmol/L (3.5-5.1)
[2023-01-06 10:12] LABS: ALBUMIN 3.6 g/dl (3.4-5.0)
[2023-01-06 10:13] LABS: BLOOD UREA NITROGEN 24.6 mg/dL (7-18); CALCIUM 9.3 mg/dL (8.5-10.1)
[2023-01-06 10:15] LABS: CREATININE 0.9 mg/dL (0.55-1.3)
[2023-01-06 10:16] LABS: BILIRUBIN,TOTAL 0.3 mg/dL (0.2-1); TOT PROT 7.1 g/dl (6.4-8.2)
[2023-01-06] MEDS: ROSUVASTATIN CA 20 MG TABLET PO SCH (23:03)
[2023-01-06] MEDS: traZODone HCL 50 MG TABLET (FP) PO SCH (23:03)
[2023-01-06] MEDS: DONEPEZIL HCL 10 MG TABLET (FP) PO SCH (23:03)
[2023-01-07] MEDS: oxyCODONE HCL 5 MG TABLET PO PRN ×2 (00:01→14:03)
[2023-01-07] MEDS: LEVOTHYROXINE NA 50 MCG TABLET (FP) PO SCH (06:44)
[2023-01-07] MEDS: TOBRAMYCIN 0.3% OPHTH SOLN 5 ML BOTTLE OU SCH ×3 (06:47→17:12)
[2023-01-07] MEDS: INSULIN SLIDING SCALE (NOVOLOG) 1 VIAL SQ SCH ×4 (06:47→22:58)
[2023-01-07] MEDS: APIXABAN 5 MG TABLET PO SCH ×2 (09:13→22:46)
[2023-01-07] MEDS: LACTOBACILLUS ACIDOPHILUS 1 TABLET PO SCH (09:13)
[2023-01-07] MEDS: AMOX TR/POT CLAV 875MG/125MG TABLETS (FP) PO SCH ×2 (09:13→17:03)
[2023-01-07] MEDS: QUETIAPINE FUMARATE 100 MG, QUETIAPINE FUMARATE 50 MG PO SCH (09:14)
[2023-01-07] MEDS: LORazepam 2 MG/ML SDV VIAL IM PRN (09:22)
[2023-01-07] MEDS: AMINO ACIDS/PROTEIN HYDROLYS 30 ML LIQUID.PKT PO SCH ×2 (09:24→17:15)
[2023-01-07] MEDS: COLLAGENASE CLOSTRIDIUM HIST. 30 GRAMS TUBE TP SCH (09:25)
[2023-01-07] MEDS ORDERED: INSULIN (NOVOLOG) ASPART 100 UNITS/ML 10ML VIAL ONE ×2 (11:04→16:54)
[2023-01-07] MEDS: ROSUVASTATIN CA 20 MG TABLET PO SCH (22:46)
[2023-01-07] MEDS: DONEPEZIL HCL 10 MG TABLET (FP) PO SCH (22:46)
[2023-01-07] MEDS: traZODone HCL 50 MG TABLET (FP) PO SCH (22:46)
[2023-01-08] MEDS: TOBRAMYCIN 0.3% OPHTH SOLN 5 ML BOTTLE OU SCH ×4 (00:39→17:25)
[2023-01-08] MEDS: oxyCODONE HCL 5 MG TABLET PO PRN ×2 (05:04→15:42)
[2023-01-08] MEDS: INSULIN SLIDING SCALE (NOVOLOG) 1 VIAL SQ SCH ×4 (06:47→22:58)
[2023-01-08] MEDS: QUETIAPINE FUMARATE 100 MG, QUETIAPINE FUMARATE 50 MG PO SCH (09:11)
[2023-01-08] MEDS: AMINO ACIDS/PROTEIN HYDROLYS 30 ML LIQUID.PKT PO SCH ×2 (09:11→16:44)
[2023-01-08] MEDS: LACTOBACILLUS ACIDOPHILUS 1 TABLET PO SCH (09:11)
[2023-01-08] MEDS: APIXABAN 5 MG TABLET PO SCH ×2 (09:11→22:52)
[2023-01-08] MEDS: AMOX TR/POT CLAV 875MG/125MG TABLETS (FP) PO SCH ×2 (09:11→16:44)
[2023-01-08] MEDS: COLLAGENASE CLOSTRIDIUM HIST. 30 GRAMS TUBE TP SCH (09:12)
[2023-01-08] MEDS: LEVOTHYROXINE NA 50 MCG TABLET (FP) PO SCH (09:36)
[2023-01-08 15:04] VITALS: RESP 18
[2023-01-08] MEDS: LORazepam 2 MG/ML SDV VIAL IM PRN (15:49)
[2023-01-08] MEDS ORDERED: INSULIN (NOVOLOG) ASPART 100 UNITS/ML 10ML VIAL ONE ×2 (16:56→21:38)
[2023-01-08] MEDS: ROSUVASTATIN CA 20 MG TABLET PO SCH (22:52)
[2023-01-08] MEDS: traZODone HCL 50 MG TABLET (FP) PO SCH (22:52)
[2023-01-08] MEDS: DONEPEZIL HCL 10 MG TABLET (FP) PO SCH (22:53)
[2023-01-09 00:09] VITALS: PULSE 69
[2023-01-09] MEDS: TOBRAMYCIN 0.3% OPHTH SOLN 5 ML BOTTLE OU SCH ×5 (00:44→19:48)
[2023-01-09] MEDS: ROSUVASTATIN CA 20 MG TABLET PO SCH ×2 (01:58→21:25)
[2023-01-09] MEDS: DONEPEZIL HCL 10 MG TABLET (FP) PO SCH ×2 (01:58→21:25)
[2023-01-09] MEDS: traZODone HCL 50 MG TABLET (FP) PO SCH ×2 (01:58→21:25)
[2023-01-09] MEDS: APIXABAN 5 MG TABLET PO SCH ×3 (01:58→21:25)
[2023-01-09] MEDS: INSULIN SLIDING SCALE (NOVOLOG) 1 VIAL SQ SCH ×4 (06:37→21:33)
[2023-01-09] MEDS: LEVOTHYROXINE NA 50 MCG TABLET (FP) PO SCH (06:37)
[2023-01-09] MEDS: AMINO ACIDS/PROTEIN HYDROLYS 30 ML LIQUID.PKT PO SCH ×2 (09:49→17:54)
[2023-01-09] MEDS: AMOX TR/POT CLAV 875MG/125MG TABLETS (FP) PO SCH ×2 (09:49→17:54)
[2023-01-09] MEDS ORDERED: LORazepam 2 MG TABLET PO PRN (09:50)
[2023-01-09] MEDS ORDERED: LORazepam 0.5 MG TABLET PO PRN ×2 (09:55→10:44)
[2023-01-09] MEDS: LACTOBACILLUS ACIDOPHILUS 1 TABLET PO SCH (10:14)
[2023-01-09] MEDS: COLLAGENASE CLOSTRIDIUM HIST. 30 GRAMS TUBE TP SCH (10:15)
[2023-01-09] MEDS: QUETIAPINE FUMARATE 100 MG, QUETIAPINE FUMARATE 50 MG PO SCH (10:19)
[2023-01-09] MEDS ORDERED: LORazepam 0.5 MG TABLET PO ONE (10:43)
[2023-01-09] MEDS ORDERED: LORazepam 2 MG/ML SDV VIAL IM ONE (12:42)
[2023-01-09] MEDS: oxyCODONE HCL 5 MG TABLET PO PRN (21:25)
[2023-01-10 00:04] VITALS: BP 137/56; TEMP 97.8
[2023-01-10] MEDS: TOBRAMYCIN 0.3% OPHTH SOLN 5 ML BOTTLE OU SCH (00:56)
== END 2023-01-10 05:57 | disposition home health service (06) ==
LOC: JER 14:38 → JERBED 17:10 → INTOOBSV 17:10 → OBSVTOIN 17:10 → J8W 20:50
PROVIDERS: ADMIT Student in an Organized Health Care Education/Training Program; ATTEND Nurse Practitioner Acute Care
PROC: 3E023NZ Introduction of Analgesics, Hypnotics, Sedatives into Muscle, Percutaneous Approach (ICD-10-PCS; principal; 2022-12-29)
DX: L97.419 Non-pressure chronic ulcer of right heel and midfoot with unspecified severity (principal); I25.10 Atherosclerotic heart disease of native coronary artery without angina pectoris; I48.91 Unspecified atrial fibrillation; I48.92 Unspecified atrial flutter; Z79.01 Long term (current) use of anticoagulants; I11.0 Hypertensive heart disease with heart failure; E78.5 Hyperlipidemia, unspecified; E11.9 Type 2 diabetes mellitus without complications; I73.9 Peripheral vascular disease, unspecified; G93.41 Metabolic encephalopathy; F01.50 Vascular dementia, unspecified severity, without behavioral disturbance, psychotic disturbance, mood disturbance, and anxiety; I25.2 Old myocardial infarction; I33.0 Acute and subacute infective endocarditis; Z98.890 Other specified postprocedural states; E43 Unspecified severe protein-calorie malnutrition; Z87.891 Personal history of nicotine dependence; Z95.2 Presence of prosthetic heart valve; Z86.14 Personal history of Methicillin resistant Staphylococcus aureus infection; Z88.8 Allergy status to other drugs, medicaments and biological substances
CPT/HCPCS: 36415; 80053; 82962; 85025; 85610; 85730; 87635; 96372; 97116-GP; 97161-GP; 99285-25; G0378

== ENCOUNTER 2024-02-12 01:34 | Inpatient (IN) | payer OTHER ==
[2024-02-12] MEDS ORDERED: HALOPERIDOL LACTATE 5 MG/ML ONE (02:44)
[2024-02-12] MEDS: HALOPERIDOL LACTATE 5 MG/ML IM ONE (02:56)
[2024-02-12] MEDS: MIDAZOLAM HCL 2 MG/2 ML SINGLE DOSE VIAL IM ONE (03:05)
[2024-02-12] MEDS ORDERED: MIDAZOLAM HCL 2 MG/2 ML SINGLE DOSE VIAL ONE (03:14)
[2024-02-12] MEDS: MIDAZOLAM HCL 2 MG/2 ML SINGLE DOSE VIAL IVPUSH ONE (03:56)
[2024-02-12 04:58] LABS: BASO % 0.2 % (0-2.0); EOS % 0.4 % (0-4.5); HEMATOCRIT 37.3 % (35.4-49); HEMOGLOBIN 12.6 GM/dL (11.7-16.9); MCH 37.1 pg (25.7-33.7); MCHC 33.8 g/dl (32.0-35.9); MEAN CELL VOLUME 109.8 fl (80-96); MEAN PLT VOLUME 8.4 fl (7.5-11.1); MONO % 8.7 % (3.8-10.2); NEUT % 76.7 % (42.8-82.8); PLATELET COUNT 228 10^3/uL (134-434); RDW 13.3 % (11.9-15.9); WHITE BLOOD COUNT 14.6 K/mm3 (4.0-10.0)
[2024-02-12] MEDS ORDERED: levETIRAcetam 500 MG/5 ML INJECTION VIAL IVPB ONE (05:08)
[2024-02-12 05:10] LABS: POTASSIUM 5.4 mmol/L (3.5-5.1)
[2024-02-12 05:12] LABS: CALCIUM 9.2 mg/dL (8.5-10.1)
[2024-02-12 05:13] LABS: ALBUMIN 3.6 g/dl (3.4-5.0); BLOOD UREA NITROGEN 24.9 mg/dL (7-18); MAGNESIUM 2.2 mg/dL (1.8-2.4)
[2024-02-12] MEDS: levETIRAcetam 500 MG/5 ML INJECTION VIAL IVPB ONE (05:25)
[2024-02-12 05:32] LABS: ANISOCYTOSIS 2+; BILIRUBIN,TOTAL 0.6 mg/dL (0.2-1); CREATININE 1.1 mg/dL (0.55-1.3); MACROCYTOSIS 2+; TOT PROT 7.4 g/dl (6.4-8.2)
[2024-02-12 06:06] LABS: INR 1.28 (0.83-1.09); PROTHROMBIN TIME (PATIENT) 14.6 SEC (9.7-13.0)
[2024-02-12 06:09] LABS: ACTIVATED PTT 28.8 SECONDS (25.2-36.5)
[2024-02-12] MEDS: SODIUM CHLORIDE 1,000 ML IV STA (06:56)
[2024-02-12] MEDS ORDERED: DEXMEDETOMIDINE PREMIX 400 MCG/100 ML BAG IVPB SCH (08:15)
[2024-02-12] MEDS: levETIRAcetam 500 MG/5 ML INJECTION VIAL IVPB SCH (09:31)
[2024-02-12] MEDS: MUPIROCIN 2% TOPICAL OINTMENT FOR DECOLONIZATION NS SCH (09:31)
[2024-02-12] MEDS: PANTOPRAZOLE SODIUM 40 MG VIAL IVPUSH SCH (09:31)
[2024-02-12] MEDS ORDERED: levETIRAcetam 500 MG/5 ML INJECTION VIAL IVPB SCH (10:00)
[2024-02-12 10:45] LABS: POTASSIUM 5.2 mmol/L (3.5-5.1)
[2024-02-12 10:47] LABS: CALCIUM 8.7 mg/dL (8.5-10.1)
[2024-02-12 10:48] LABS: ALBUMIN 3.2 g/dl (3.4-5.0); BLOOD UREA NITROGEN 18.3 mg/dL (7-18); MAGNESIUM 2.2 mg/dL (1.8-2.4)
[2024-02-12 10:51] LABS: CREATININE 0.9 mg/dL (0.55-1.3); PHOSPHOROUS 2.4 mg/dL (2.5-4.9)
[2024-02-12 10:52] LABS: BILIRUBIN,TOTAL 0.8 mg/dL (0.2-1); TOT PROT 6.6 g/dl (6.4-8.2)
[2024-02-12 13:09] LABS: URINE APPEARANCE CLEAR; URINE BILIRUBIN NEGATIVE (NEGATIVE); URINE COLOR YELLOW; URINE GLUCOSE (UA) NEGATIVE (NEGATIVE); URINE KETONE NEGATIVE (NEGATIVE); URINE LEUK ESTERASE NEGATIVE (NEGATIVE); URINE NITRITE NEGATIVE (NEGATIVE); URINE PROTEIN NEGATIVE (NEGATIVE); URINE UROBILINOGEN 0.2 mg/dL (0.2-1.0)
[2024-02-12] MEDS: LORazepam 2 MG/ML SDV VIAL IVPUSH ONE (13:59)
[2024-02-12] MEDS: LORazepam 2 MG/ML SDV VIAL IVPUSH PRN (14:00)
[2024-02-12] MEDS ORDERED: HALOPERIDOL LACTATE 5 MG/ML IM PRN (14:03)
[2024-02-12] MEDS: AMINO ACIDS 4.25%/D5W 1,000 ML IV SCH (17:39)
[2024-02-12] MEDS: CHLORHEXIDINE GLUCONATE 4% CLEANSER FOR DECOLONIZATION TP SCH (21:26)
[2024-02-13 07:46] LABS: BASO % 0.4 % (0-2.0); EOS % 0.8 % (0-4.5); HEMATOCRIT 34.1 % (35.4-49); HEMOGLOBIN 11.6 GM/dL (11.7-16.9); LYMPH % 17.5 % (8-40); MCH 37.4 pg (25.7-33.7); MEAN CELL VOLUME 110.1 fl (80-96); MEAN PLT VOLUME 7.8 fl (7.5-11.1); MONO % 11.3 % (3.8-10.2); PLATELET COUNT 230 10^3/uL (134-434); RDW 13.1 % (11.9-15.9); WHITE BLOOD COUNT 10.2 K/mm3 (4.0-10.0)
[2024-02-13 08:02] LABS: POTASSIUM 4.7 mmol/L (3.5-5.1)
[2024-02-13 08:05] LABS: ALBUMIN 3.3 g/dl (3.4-5.0); BLOOD UREA NITROGEN 15.8 mg/dL (7-18); MAGNESIUM 1.9 mg/dL (1.8-2.4)
[2024-02-13 08:08] LABS: CREATININE 0.8 mg/dL (0.55-1.3)
[2024-02-13 08:10] LABS: BILIRUBIN,TOTAL 0.9 mg/dL (0.2-1); TOT PROT 7.1 g/dl (6.4-8.2)
[2024-02-13 08:20] LABS: INR 1.16 (0.83-1.09); PROTHROMBIN TIME (PATIENT) 13.1 SEC (9.7-13.0)
[2024-02-13 08:21] LABS: ACTIVATED PTT 32.8 SECONDS (25.2-36.5)
[2024-02-13] MEDS: hydrALAZINE HCL 20 MG/ML VIAL IVPUSH ONE (09:45)
[2024-02-13] MEDS ORDERED: SOTALOL HCL 80 MG TABLET (FP) PO SCH (10:00)
[2024-02-13] MEDS: amLODIPine BESYLATE 5 MG TABLET (FP) PO SCH (10:44)
[2024-02-13] MEDS: SOTALOL HCL 80 MG TABLET (FP) PO SCH (10:46)
[2024-02-13] MEDS: INSULIN ASPART SLIDING SCALE (NOVOLOG) 1 VIAL SQ SCH (17:30)
[2024-02-14] MEDS: LEVOTHYROXINE NA 50 MCG TABLET (FP) PO SCH (06:20)
[2024-02-14 07:42] LABS: BASO % 0.4 % (0-2.0); EOS % 0.4 % (0-4.5); HEMATOCRIT 33.1 % (35.4-49); HEMOGLOBIN 11.3 GM/dL (11.7-16.9); LYMPH % 19.1 % (8-40); MEAN CELL VOLUME 108.7 fl (80-96); MEAN PLT VOLUME 7.8 fl (7.5-11.1); MONO % 8.9 % (3.8-10.2); NEUT % 71.2 % (42.8-82.8); PLATELET COUNT 283 10^3/uL (134-434); RBC 3.04 M/mm3 (4.00-5.60); RDW 13.1 % (11.9-15.9); WHITE BLOOD COUNT 11.3 K/mm3 (4.0-10.0)
[2024-02-14 08:01] LABS: POTASSIUM 4.3 mmol/L (3.5-5.1)
[2024-02-14 08:06] LABS: ALBUMIN 3.1 g/dl (3.4-5.0); BLOOD UREA NITROGEN 29.2 mg/dL (7-18); CALCIUM 8.6 mg/dL (8.5-10.1)
[2024-02-14 08:07] LABS: MAGNESIUM 1.8 mg/dL (1.8-2.4)
[2024-02-14 08:09] LABS: CREATININE 1.1 mg/dL (0.55-1.3); PHOSPHOROUS 2.2 mg/dL (2.5-4.9)
[2024-02-14 08:10] LABS: BILIRUBIN,TOTAL 0.7 mg/dL (0.2-1); TOT PROT 6.6 g/dl (6.4-8.2)
[2024-02-14] MEDS: amLODIPine BESYLATE 10 MG TABLET (FP) PO SCH (09:25)
[2024-02-15 07:28] LABS: BASO % 0.6 % (0-2.0); EOS % 0.5 % (0-4.5); HEMATOCRIT 32.1 % (35.4-49); LYMPH % 17.9 % (8-40); MCH 37.6 pg (25.7-33.7); MCHC 34.3 g/dl (32.0-35.9); MEAN CELL VOLUME 109.5 fl (80-96); MEAN PLT VOLUME 7.5 fl (7.5-11.1); MONO % 10.8 % (3.8-10.2); NEUT % 70.2 % (42.8-82.8); PLATELET COUNT 302 10^3/uL (134-434); RBC 2.93 M/mm3 (4.00-5.60); RDW 13.2 % (11.9-15.9); WHITE BLOOD COUNT 12.5 K/mm3 (4.0-10.0)
[2024-02-15 07:42] LABS: POTASSIUM 4.4 mmol/L (3.5-5.1)
[2024-02-15 07:45] LABS: ALBUMIN 3.1 g/dl (3.4-5.0); BLOOD UREA NITROGEN 32.8 mg/dL (7-18); CALCIUM 8.7 mg/dL (8.5-10.1); MAGNESIUM 1.9 mg/dL (1.8-2.4)
[2024-02-15 07:49] LABS: CREATININE 1.1 mg/dL (0.55-1.3)
[2024-02-15 07:50] LABS: BILIRUBIN,TOTAL 0.9 mg/dL (0.2-1); TOT PROT 6.8 g/dl (6.4-8.2)
[2024-02-15 09:49] LABS: ANISOCYTOSIS 1+; MACROCYTOSIS 1+
[2024-02-15] MEDS: SODIUM CHLORIDE 1,000 ML IV SCH (13:16)
[2024-02-15] MEDS: LABETALOL HCL 20 MG/4 ML VIAL IVPUSH PRN (21:43)
[2024-02-16 07:46] LABS: BASO % 0.3 % (0-2.0); EOS % 0.2 % (0-4.5); HEMATOCRIT 29.7 % (35.4-49); HEMOGLOBIN 9.9 GM/dL (11.7-16.9); LYMPH % 13.8 % (8-40); MCH 37.1 pg (25.7-33.7); MCHC 33.2 g/dl (32.0-35.9); MEAN CELL VOLUME 111.6 fl (80-96); MEAN PLT VOLUME 7.7 fl (7.5-11.1); MONO % 12.1 % (3.8-10.2); NEUT % 73.6 % (42.8-82.8); PLATELET COUNT 226 10^3/uL (134-434); RBC 2.67 M/mm3 (4.00-5.60); RDW 13.4 % (11.9-15.9); WHITE BLOOD COUNT 11.6 K/mm3 (4.0-10.0)
[2024-02-16 08:03] LABS: POTASSIUM 4.8 mmol/L (3.5-5.1)
[2024-02-16 08:08] LABS: ALBUMIN 2.7 g/dl (3.4-5.0); BLOOD UREA NITROGEN 18.6 mg/dL (7-18); CALCIUM 8.4 mg/dL (8.5-10.1); MAGNESIUM 1.7 mg/dL (1.8-2.4)
[2024-02-16 08:10] LABS: CREATININE 0.8 mg/dL (0.55-1.3)
[2024-02-16 08:13] LABS: TOT PROT 6.3 g/dl (6.4-8.2)
[2024-02-16] MEDS: AMOXICILLIN 500 MG CAPSULE (FP) PO SCH (11:03)
[2024-02-17 07:16] LABS: BASO % 0.3 % (0-2.0); EOS % 0.3 % (0-4.5); HEMATOCRIT 30.2 % (35.4-49); HEMOGLOBIN 10.2 GM/dL (11.7-16.9); LYMPH % 9.7 % (8-40); MCH 37.5 pg (25.7-33.7); MCHC 33.9 g/dl (32.0-35.9); MEAN CELL VOLUME 110.4 fl (80-96); MEAN PLT VOLUME 7.7 fl (7.5-11.1); MONO % 9.7 % (3.8-10.2); PLATELET COUNT 226 10^3/uL (134-434); RBC 2.73 M/mm3 (4.00-5.60); RDW 13.4 % (11.9-15.9); WHITE BLOOD COUNT 11.6 K/mm3 (4.0-10.0)
[2024-02-17 07:26] LABS: POTASSIUM 3.7 mmol/L (3.5-5.1)
[2024-02-17 07:37] LABS: CALCIUM 8.7 mg/dL (8.5-10.1)
[2024-02-17 07:39] LABS: ALBUMIN 2.8 g/dl (3.4-5.0); BLOOD UREA NITROGEN 14.5 mg/dL (7-18)
[2024-02-17 07:41] LABS: CREATININE 0.7 mg/dL (0.55-1.3); PHOSPHOROUS 2.3 mg/dL (2.5-4.9)
[2024-02-17 07:42] LABS: BILIRUBIN,TOTAL 1.1 mg/dL (0.2-1); TOT PROT 6.5 g/dl (6.4-8.2)
[2024-02-17] MEDS: levETIRAcetam 500 MG/5 ML INJECTION VIAL IVPB SCH (09:57)
[2024-02-17] MEDS: PANTOPRAZOLE SODIUM 40 MG VIAL IVPUSH SCH (09:57)
[2024-02-17] MEDS: MUPIROCIN 2% TOPICAL OINTMENT FOR DECOLONIZATION NS SCH (13:06)
[2024-02-17 15:56] VITALS: BMI 19.2
[2024-02-17] MEDS: POTASSIUM PHOSPHATE 30 MM in SODIUM CHLORIDE 250 ML IVPB ONE (17:15)
[2024-02-17] MEDS: AMINO ACIDS 4.25%/D5W 1,000 ML IV SCH (21:18)
[2024-02-17] MEDS: CHLORHEXIDINE GLUCONATE 4% CLEANSER FOR DECOLONIZATION TP SCH (21:19)
[2024-02-18 06:57] LABS: HEMATOCRIT 28.5 % (35.4-49); HEMOGLOBIN 9.5 GM/dL (11.7-16.9); MCHC 33.5 g/dl (32.0-35.9); MEAN CELL VOLUME 110.6 fl (80-96); MEAN PLT VOLUME 7.7 fl (7.5-11.1); PLATELET COUNT 239 10^3/uL (134-434); RBC 2.57 M/mm3 (4.00-5.60); RDW 13.2 % (11.9-15.9); WHITE BLOOD COUNT 10.6 K/mm3 (4.0-10.0)
[2024-02-18 07:14] LABS: POTASSIUM 3.5 mmol/L (3.5-5.1)
[2024-02-18 07:18] LABS: ALBUMIN 2.4 g/dl (3.4-5.0); BLOOD UREA NITROGEN 23.8 mg/dL (7-18); CALCIUM 8.5 mg/dL (8.5-10.1); MAGNESIUM 2.1 mg/dL (1.8-2.4)
[2024-02-18 07:21] LABS: CREATININE 0.6 mg/dL (0.55-1.3)
[2024-02-18 07:22] LABS: BILIRUBIN,TOTAL 0.8 mg/dL (0.2-1); PHOSPHOROUS 2.5 mg/dL (2.5-4.9)
[2024-02-18] MEDS: METOPROLOL TARTRATE 5 MG/5 ML VIAL IVPUSH PRN (12:00)
[2024-02-19 07:20] LABS: BASO % 0.5 % (0-2.0); EOS % 3.2 % (0-4.5); LYMPH % 14.8 % (8-40); MCH 37.3 pg (25.7-33.7); MCHC 34.6 g/dl (32.0-35.9); MEAN CELL VOLUME 107.9 fl (80-96); MEAN PLT VOLUME 7.9 fl (7.5-11.1); MONO % 8.5 % (3.8-10.2); PLATELET COUNT 228 10^3/uL (134-434); RBC 2.69 M/mm3 (4.00-5.60); RDW 13.3 % (11.9-15.9); WHITE BLOOD COUNT 8.7 K/mm3 (4.0-10.0)
[2024-02-19 07:45] LABS: POTASSIUM 3.3 mmol/L (3.5-5.1)
[2024-02-19 07:47] LABS: ALBUMIN 2.2 g/dl (3.4-5.0); BLOOD UREA NITROGEN 28.9 mg/dL (7-18); CALCIUM 8.3 mg/dL (8.5-10.1)
[2024-02-19 07:50] LABS: CREATININE 0.7 mg/dL (0.55-1.3)
[2024-02-19 07:52] LABS: BILIRUBIN,TOTAL 0.8 mg/dL (0.2-1); TOT PROT 5.8 g/dl (6.4-8.2)
[2024-02-19 10:23] LABS: ANISOCYTOSIS 0; MACROCYTOSIS 2+
[2024-02-19] MEDS: POTASSIUM CHLORIDE TABS 20 MEQ TABLET.ER (FP) PO SCH (11:22)
[2024-02-19] MEDS: POTASSIUM PHOSPHATE 30 MM in SODIUM CHLORIDE 500 ML IVPB ONE (14:55)
[2024-02-19] MEDS: AMINO ACIDS 4.25%/D5W 1,000 ML IV SCH (14:56)
[2024-02-19] MEDS ORDERED: MAGNESIUM HYDROX 2400MG/30ML ORAL SUSPENSION 30 ML CUP PO PRN (18:24)
[2024-02-19] MEDS: ACETAMINOPHEN 1000 MG/100 ML BAG IVPB PRN (19:56)
[2024-02-19] MEDS: DOCUSATE SODIUM 100 MG CAPSULE (FP) PO SCH (21:01)
[2024-02-20 08:17] LABS: BASO % 0.7 % (0-2.0); EOS % 2.3 % (0-4.5); HEMATOCRIT 30.9 % (35.4-49); HEMOGLOBIN 10.5 GM/dL (11.7-16.9); LYMPH % 12.6 % (8-40); MCH 37.1 pg (25.7-33.7); MCHC 34.1 g/dl (32.0-35.9); MEAN CELL VOLUME 108.7 fl (80-96); MEAN PLT VOLUME 7.8 fl (7.5-11.1); MONO % 7.7 % (3.8-10.2); NEUT % 76.7 % (42.8-82.8); PLATELET COUNT 259 10^3/uL (134-434); RBC 2.84 M/mm3 (4.00-5.60); WHITE BLOOD COUNT 10.3 K/mm3 (4.0-10.0)
[2024-02-20 08:20] LABS: POTASSIUM 3.8 mmol/L (3.5-5.1)
[2024-02-20 08:24] LABS: CALCIUM 8.5 mg/dL (8.5-10.1)
[2024-02-20 08:25] LABS: ALBUMIN 2.3 g/dl (3.4-5.0); BLOOD UREA NITROGEN 27.4 mg/dL (7-18); MAGNESIUM 1.9 mg/dL (1.8-2.4)
[2024-02-20 08:28] LABS: CREATININE 0.6 mg/dL (0.55-1.3); PHOSPHOROUS 1.9 mg/dL (2.5-4.9)
[2024-02-20 08:29] LABS: BILIRUBIN,TOTAL 0.8 mg/dL (0.2-1); TOT PROT 6.1 g/dl (6.4-8.2)
[2024-02-20] MEDS: METOPROLOL TARTRATE 25 MG TABLET (FP) PO SCH ×2 (11:06→22:25)
[2024-02-20] MEDS: ACETAMINOPHEN 1000 MG/100 ML BAG IVPB PRN (11:46)
[2024-02-20] MEDS ORDERED: MAGNESIUM HYDROX 2400MG/30ML ORAL SUSPENSION 30 ML CUP PO PRN (21:48)
[2024-02-20] MEDS ORDERED: LABETALOL HCL 20 MG/4 ML VIAL IVPUSH PRN (21:48)
[2024-02-20] MEDS ORDERED: MUPIROCIN 2% TOPICAL OINTMENT FOR DECOLONIZATION NS SCH (22:00)
[2024-02-20] MEDS ORDERED: CHLORHEXIDINE GLUCONATE 4% CLEANSER FOR DECOLONIZATION TP SCH (22:00)
[2024-02-20] MEDS: DOCUSATE SODIUM 100 MG CAPSULE (FP) PO SCH (22:24)
[2024-02-21] MEDS: LEVOTHYROXINE NA 50 MCG TABLET (FP) PO SCH (06:46)
[2024-02-21] MEDS: INSULIN ASPART SLIDING SCALE (NOVOLOG) 1 VIAL SQ SCH (06:46)
[2024-02-21 09:27] LABS: BASO % 0.6 % (0-2.0); EOS % 2.4 % (0-4.5); HEMATOCRIT 32.6 % (35.4-49); HEMOGLOBIN 11.3 GM/dL (11.7-16.9); LYMPH % 11.9 % (8-40); MCH 37.4 pg (25.7-33.7); MCHC 34.5 g/dl (32.0-35.9); MEAN CELL VOLUME 108.4 fl (80-96); MEAN PLT VOLUME 8.1 fl (7.5-11.1); MONO % 8.3 % (3.8-10.2); NEUT % 76.8 % (42.8-82.8); PLATELET COUNT 258 10^3/uL (134-434); RBC 3.01 M/mm3 (4.00-5.60); RDW 13.4 % (11.9-15.9); WHITE BLOOD COUNT 8.9 K/mm3 (4.0-10.0)
[2024-02-21 09:54] LABS: POTASSIUM 4.2 mmol/L (3.5-5.1)
[2024-02-21 09:57] LABS: CALCIUM 8.6 mg/dL (8.5-10.1)
[2024-02-21 09:58] LABS: ALBUMIN 2.4 g/dl (3.4-5.0); MAGNESIUM 1.9 mg/dL (1.8-2.4)
[2024-02-21 10:01] LABS: CREATININE 0.6 mg/dL (0.55-1.3); PHOSPHOROUS 2.2 mg/dL (2.5-4.9)
[2024-02-21 10:02] LABS: BILIRUBIN,TOTAL 0.8 mg/dL (0.2-1)
[2024-02-21 10:03] LABS: TOT PROT 6.1 g/dl (6.4-8.2)
[2024-02-21] MEDS: PANTOPRAZOLE SODIUM 40 MG VIAL IVPUSH SCH (10:45)
[2024-02-21] MEDS: amLODIPine BESYLATE 10 MG TABLET (FP) PO SCH (10:45)
[2024-02-21] MEDS: SOTALOL HCL 80 MG TABLET (FP) PO SCH (10:45)
[2024-02-21] MEDS: AMOXICILLIN 500 MG CAPSULE (FP) PO SCH (10:45)
[2024-02-21] MEDS ORDERED: METOPROLOL TARTRATE 5 MG/5 ML VIAL IVPB PRN (11:10)
[2024-02-21] MEDS: AMINO ACIDS 4.25%/D5W 1,000 ML IV SCH (13:50)
[2024-02-22 06:58] VITALS: RESP 18
[2024-02-22 09:25] LABS: BASO % 0.5 % (0-2.0); EOS % 0.4 % (0-4.5); HEMATOCRIT 32.8 % (35.4-49); HEMOGLOBIN 10.9 GM/dL (11.7-16.9); LYMPH % 10.1 % (8-40); MCH 36.2 pg (25.7-33.7); MCHC 33.2 g/dl (32.0-35.9); MEAN CELL VOLUME 108.9 fl (80-96); MONO % 7.6 % (3.8-10.2); NEUT % 81.4 % (42.8-82.8); PLATELET COUNT 300 10^3/uL (134-434); RBC 3.02 M/mm3 (4.00-5.60); RDW 13.2 % (11.9-15.9); WHITE BLOOD COUNT 10.7 K/mm3 (4.0-10.0)
[2024-02-22 09:56] LABS: POTASSIUM 4.1 mmol/L (3.5-5.1)
[2024-02-22] MEDS: PANTOPRAZOLE 40 MG TABLET PO SCH (10:14)
[2024-02-22 10:18] LABS: ALBUMIN 2.5 g/dl (3.4-5.0); BLOOD UREA NITROGEN 34.5 mg/dL (7-18); MAGNESIUM 2.1 mg/dL (1.8-2.4)
[2024-02-22 10:21] LABS: CREATININE 0.8 mg/dL (0.55-1.3)
[2024-02-22 10:22] LABS: BILIRUBIN,TOTAL 0.9 mg/dL (0.2-1); TOT PROT 6.7 g/dl (6.4-8.2)
[2024-02-22 10:28] LABS: ANISOCYTOSIS 2+; MACROCYTOSIS 1+
[2024-02-22] MEDS: AMINO ACIDS 4.25%/D5W 1,000 ML IV SCH (13:13)
[2024-02-23] MEDS: metoPROLOL SUCCINATE 25 MG TAB.SR.24H (FP) PO SCH (21:38)
[2024-02-24 10:36] LABS: BASO % 0.8 % (0-2.0); EOS % 1.6 % (0-4.5); HEMATOCRIT 32.6 % (35.4-49); LYMPH % 14.1 % (8-40); MCH 36.6 pg (25.7-33.7); MCHC 33.8 g/dl (32.0-35.9); MEAN CELL VOLUME 108.2 fl (80-96); MEAN PLT VOLUME 8.4 fl (7.5-11.1); NEUT % 75.5 % (42.8-82.8); PLATELET COUNT 279 10^3/uL (134-434); RBC 3.01 M/mm3 (4.00-5.60); RDW 13.7 % (11.9-15.9); WHITE BLOOD COUNT 8.6 K/mm3 (4.0-10.0)
[2024-02-24 10:58] LABS: ALBUMIN 2.5 g/dl (3.4-5.0); BLOOD UREA NITROGEN 25.8 mg/dL (7-18); CALCIUM 8.8 mg/dL (8.5-10.1); MAGNESIUM 2.2 mg/dL (1.8-2.4)
[2024-02-24 11:01] LABS: CREATININE 0.6 mg/dL (0.55-1.3)
[2024-02-24 11:02] LABS: PHOSPHOROUS 2.3 mg/dL (2.5-4.9)
[2024-02-24 11:03] LABS: BILIRUBIN,TOTAL 0.8 mg/dL (0.2-1); TOT PROT 6.6 g/dl (6.4-8.2)
[2024-02-24 13:28] VITALS: TEMP 98.6
[2024-02-24 21:18] VITALS: BP 132/84; PULSE 74
== END 2024-02-25 02:45 | DRG 964 ==
LOC: JER 01:34 → JERBED 05:46 → JICU 08:13 → J2W 02-15 20:08 → J6S 02-20 21:33
PROVIDERS: ADMIT Internal Medicine Pulmonary Disease; ATTEND Internal Medicine
DX: S06.2XAA Diffuse traumatic brain injury with loss of consciousness status unknown, initial encounter (principal); F03.918 Unspecified dementia, unspecified severity, with other behavioral disturbance; S72.114A Nondisplaced fracture of greater trochanter of right femur, initial encounter for closed fracture; S79.911A Unspecified injury of right hip, initial encounter; I25.10 Atherosclerotic heart disease of native coronary artery without angina pectoris; F32.9 Major depressive disorder, single episode, unspecified; E11.51 Type 2 diabetes mellitus with diabetic peripheral angiopathy without gangrene; E78.5 Hyperlipidemia, unspecified; E03.9 Hypothyroidism, unspecified; I10 Essential (primary) hypertension; I48.91 Unspecified atrial fibrillation; W18.30XA Fall on same level, unspecified, initial encounter; Y93.9 Activity, unspecified; Y92.129 Unspecified place in nursing home as the place of occurrence of the external cause; Y99.9 Unspecified external cause status; Z95.1 Presence of aortocoronary bypass graft; Z95.2 Presence of prosthetic heart valve
CPT/HCPCS: 0241U-QW; 36415; 70450-TC; 71045-TC-FY; 72125-TC; 73502-TC-RT-FY; 73700-TC-RT; 80053; 81003; 82550; 82553; 82607; 82746; 82962; 83036; 83735; 84100; 84484; 85025; 85027; 85610; 85730; 86850; 86900; 86901; 87086; 87481; 93005; 93010; 99285-25; E0186; J0131